=== PATIENT | female | born 1975 | race Caucasian/White ===

== ENCOUNTER 2016-05-01 15:31 | Emergency (ER) | payer BC ==
[2016-05-01] MEDS ORDERED: ORPHENADRINE 30 MG/ML 2 ML VIAL IVP STA (16:57)
[2016-05-01] MEDS ORDERED: HYDROmorphone 1 MG/ML 1 ML SYRINGE IVP STA ×2 (16:57→18:55)
--- NOTE | 2016-05-01 17:10 | ED ---
SOB HPI - General Chief Complaint: Shortness of Breath Stated Complaint: flank pain Time Seen by Provider: 05/01/16 16:45 Source: patient, RN notes reviewed Mode of arrival: ambulatory Limitations: no limitations - History of Present Illness Initial Comments: 40-year-old female presents emergency Department chief complaint right-sided rib pain. Patient states any time she takes a breath or touches the right side of her ribs a certain way causes pain. Patient states she holds them it feels better. Patient does state that she had pneumonia a little while ago and that about a week ago other than that there is no false there is no Baer there is no significant lifting. Patient states she was concerned because the pain just does not indicate that does not seem to be improving since it's constant sharp pain. Patient states that she went to urgent. They state that everything looked fine and she was sent home but she feels as if there must be something more. Patient states that she is not currently having any other symptoms at this time. Patient states taking a deep breath causes increased pain.Patient denies any recent fever, chills, back pain, abdominal pain, nausea vomiting, numbness or tingling, dysuria or hematuria, constipation or diarrhea, headaches or visual changes, or any other current symptoms. - Related Data Home Medications Medication Instructions Recorded Confirmed Dextroamphetamine/Amphetamine 60 mg PO QAM 05/01/16 05/01/16 [Adderall Xr] QUEtiapine FUMARATE [SEROquel] 200 mg PO HS 05/01/16 05/01/16 QUEtiapine [SEROquel] 100 mg PO BID 05/01/16 05/01/16 Sertraline HCl [Zoloft] 200 mg PO DAILY 05/01/16 05/01/16 lamoTRIgine [LaMICtal] 100 mg PO BID 05/01/16 05/01/16 Previous Rx's Medication Instructions Recorded Hydrocodone/Acetaminophen [[place] 1 each PO Q6HR PRN #20 tab 05/01/16 5-325] predniSONE 50 mg PO DAILY #5 tab 05/01/16 Allergies Allergy/AdvReac Type Severity Reaction Status Date / Time No Known Allergies Allergy Verified 05/01/16 17:04 Review of Systems ROS Statement: Those systems with pertinent positive or pertinent negative responses have been documented in the HPI. ROS Other: All systems not noted in ROS Statement are negative. Past Medical History Past Medical History: No Reported History History of Any Multi-Drug Resistant Organisms: None Reported Past Surgical History: Appendectomy, Cholecystectomy Past Psychological History: ADD/ADHD, Depression Smoking Status: Never smoker Past Alcohol Use History: None Reported Past Drug Use History: Marijuana General Exam - General Exam Comments Initial Comments: General: The patient is awake and alert, in no distress, and does not appear acutely ill. Eye: Pupils are equal, round. Ears, nose, mouth and throat: There are moist mucous membranes and no oral lesions. Neck: The neck is supple, there is no tenderness. Cardiovascular: There is a regular rate and rhythm. No murmur, rub or gallop is appreciated.constipation along the right lateral rib cage to the anterior rib cage on the right. Respiratory: Lungs are clear to auscultation, respirations are non-labored, breath sounds are equal. No wheezes, stridor, rales, or rhonchi. Gastrointestinal: Soft, non-distended, non-tender abdomen without masses or organomegaly noted. There is no rebound or guarding present. No CVA tenderness. Bowel sounds are unremarkable. Back: There is no tenderness to palpation in the midline. There is no obvious deformity. No rashes noted. Musculoskeletal: Normal ROM, no tenderness, There is no pedal edema. There is no calf tenderness or swelling. Sensation intact. Pulses equal bilaterally 2+. Neurological: CN II-XII intact, There are no obvious motor or sensory deficits. Coordination appears grossly intact. Speech is normal. Skin: Skin is warm and dry and no rashes or lesions are noted. Psychiatric: Cooperative, appropriate mood & affect, normal judgment. Limitations: no limitations Course Vital Signs 05/01/16 05/01/16 15:38 17:12 Temperature 98.2 F 98.5 F Pulse Rate 109 H 86 Respiratory 20 20 Rate Blood Pressure 139/89 142/82 O2 Sat by Pulse 100 98 Oximetry Medical Decision Making - Medical Decision Making 40-year-old female presents for appears to be a costochondritis type pain. At this time CAT scan blood work is reviewed and negative. At this time the patient appears to have a costochondritis. We discussed pain medication. We discussed splint and ice. We discussed appropriate follow-up. We discussed return parameters. Discussed all the patient's questions. She stated that she understood and she had is in agreement with the plan. This time the patient will be discharged home. - Lab Data Result diagrams: 05/01/16 17:30 05/01/16 17:30 Lab Results 05/01/16 05/01/16 05/01/16 Range/Units 17:30 17:30 17:30 WBC 7.7 (3.8-10.6) k/uL RBC 4.39 (3.80-5.40) m/uL Hgb 11.1 L (11.4-16.0) gm/dL Hct 34.8 (34.0-46.0) % MCV 79.3 L (80.0-100.0) fL MCH 25.4 (25.0-35.0) pg MCHC 32.0 (31.0-37.0) g/dL RDW 17.2 H (11.5-15.5) % Plt Count 432 (150-450) k/uL Neutrophils % 73 % Lymphocytes % 19 % Monocytes % 6 % Eosinophils % 1 % Basophils % 0 % Neutrophils # 5.6 (1.3-7.7) k/uL Lymphocytes # 1.5 (1.0-4.8) k/uL Monocytes # 0.4 (0-1.0) k/uL Eosinophils # 0.1 (0-0.7) k/uL Basophils # 0.0 (0-0.2) k/uL Hypochromasia Slight Anisocytosis Slight Microcytosis Slight D-Dimer 0.66 H (<0.60) mg/L FEU Sodium 142 (137-145) mmol/L Potassium 3.8 (3.5-5.1) mmol/L Chloride 107 (98-107) mmol/L Carbon Dioxide 24 (22-30) mmol/L Anion Gap 11 mmol/L BUN 10 (7-17) mg/dL Creatinine 0.87 (0.52-1.04) mg/dL Est GFR (MDRD) Af Amer >60 (>60 ml/min/1.73 sqM) Est GFR (MDRD) Non-Af >60 (>60 ml/min/1.73 sqM) Glucose 90 (74-99) mg/dL Calcium 9.7 (8.4-10.2) mg/dL Total Bilirubin 0.4 (0.2-1.3) mg/dL AST 20 (14-36) U/L ALT 27 (9-52) U/L Alkaline Phosphatase 63 (38-126) U/L Total Protein 7.4 (6.3-8.2) g/dL Albumin 4.3 (3.5-5.0) g/dL - Radiology Data Radiology results: report reviewed, image reviewed Disposition Clinical Impression: Costochondritis, Thyroid cyst Disposition: HOME SELF-CARE Condition: Stable Instructions: Costochondritis (ED) Additional Instructions: Please use medication as discussed. Please follow up with family doctor if symptoms have not improved over the next two days. Please return to the emergency room if your symptoms increase or worsen or for any other concerns. Prescriptions: Hydrocodone/Acetaminophen [[place] 5-325] 1 each PO Q6HR PRN #20 tab PRN Reason: Pain predniSONE 50 mg PO DAILY #5 tab Referrals: Gucci Gooden MD [STAFF PHYSICIAN] - 1-2 days Time of Disposition: 18:58
[2016-05-01 17:45] LABS: ALT 27 U/L (9-52); AST 20 U/L (14-36); Alkaline Phosphatase 63 U/L (38-126); Anion Gap 11 mmol/L; Blood Urea Nitrogen 10 mg/dL (7-17); Calcium 9.7 mg/dL (8.4-10.2); Carbon Dioxide 24 mmol/L (22-30); Chloride 107 mmol/L (98-107); Glucose 90 mg/dL (74-99); Non-African American GFR(MDRD) >60 (>60 ml/min/1.73 sqM); Potassium 3.8 mmol/L (3.5-5.1); Sodium 142 mmol/L (137-145); Total Bilirubin 0.4 mg/dL (0.2-1.3); Total Protein 7.4 g/dL (6.3-8.2)
[2016-05-01 17:48] LABS: Anisocytosis Slight; Basophils % (A) 0 %; CH 25.3; Eosinophils # (A) 0.1 k/uL (0-0.7); Eosinophils % (A) 1 %; HCT 34.8 % (34.0-46.0); HDW 2.87; HGB 11.1 gm/dL (11.4-16.0); Hypochromasia Slight; Luc # (Auto) 0.11; Luc % (Auto) 2; Lymphocytes # (A) 1.5 k/uL (1.0-4.8); Lymphocytes % (A) 19 %; MCH 25.4 pg (25.0-35.0); MCV 79.3 fL (80.0-100.0); Mean Platelet Volume 6.1; Microcytosis Slight; Monocytes # (A) 0.4 k/uL (0-1.0); Monocytes % (A) 6 %; Neutrophils # (A) 5.6 k/uL (1.3-7.7); Neutrophils % (A) 73 %; RBC 4.39 m/uL (3.80-5.40); RDW 17.2 % (11.5-15.5); WBC 7.7 k/uL (3.8-10.6); WBC (Perox) 8.35
[2016-05-01] MEDS ORDERED: RX INFO: IV CONTRAST WAS GIVEN 1 EACH MISC MISCELLANE PRN (18:01)
--- NOTE | 2016-05-01 18:50 | CT ---
EXAMINATION TYPE: CT angio chest DATE OF EXAM: 05/01/2016 6:38 PM COMPARISON: NONE HISTORY: Right sided Chest pain with Shortness of breath CT DLP: 226.5 mGycm Automated exposure control for dose reduction was used. CONTRAST: CTA scan of the thorax is performed with IV Contrast, patient injected with 100 mL of Omnipaque 350, pulmonary embolism protocol. . FINDINGS: There are 3-D post processed images. The lungs are clear of consolidation. There is no evidence of a pulmonary mass. There is no pleural e ffusion. There is no mediastinal adenopathy. There are no hilar masses. There is normal contrast opac ification of the pulmonary arteries. I see no filling defect. There are calcified granulomata at the left pulmonary hilum. There is no pericardial effusion. There is no pleural effusion. There is enlarg ement of the right thyroid lobe with a 2.5 cm low-density mass. There is no evidence of aortic aneury sm or dissection. The bony thorax appears intact. IMPRESSION: NO EVIDENCE OF PULMONARY EMBOLISM. LOW-DENSITY LESION IN THE RIGHT THYROID LOBE COULD BE A CYST.. I H AVE NO OLD EXAM TO COMPARE.
[2016-05-01 19:21] VITALS: BP 132/74; PULSE 72; RESP 16; TEMP 97.8
== END 2016-05-01 19:47 | disposition home or self-care (01) ==
LOC: EC 15:31
DX: M94.0 Chondrocostal junction syndrome [Tietze] (principal); E04.1 Nontoxic single thyroid nodule; F90.9 Attention-deficit hyperactivity disorder, unspecified type; F32.9 Major depressive disorder, single episode, unspecified; Z79.899 Other long term (current) drug therapy; Z87.01 Personal history of pneumonia (recurrent)
CPT/HCPCS: 36415; 85379; 80053; 85025; 71275; 99285; 96374; 96375; 96376; J2360; Q9967; J1170

== ENCOUNTER → 2017-02-05 | Outpatient (CLI) | payer BC ==
--- NOTE | 2017-02-05 09:56 | US ---
EXAMINATION TYPE: US thyroid st tissue head/neck DATE OF EXAM: 02/05/2017 COMPARISON: NONE CLINICAL HISTORY: 41-year-old female E04.1 NONTOXIC SINGLE THYROID NODULE. TECHNIQUE: Multiple sonographic images of the thyroid gland are obtained. FINDINGS: GLAND SIZE: Right Lobe: 5.9 x 2.3 x 1.8 cm Overall Parenchyma: homogenous Left Lobe: 5.8 x 1.9 x 1.8 cm Overall Parenchyma: homogeneous Isthmus Thickness: 0.4 cm NODULES RIGHT: # of nodules measured on right: 2 1. 2.5 X 2.1 x 2.1 cm mixed nodule at the lower pole with well-defined margins; . This nodule is t aller than wide and shows intranodular vascularity. Some microcalcifications are present within. Prior size: No previous 2. 0.8 X 0.4 x 0.7 cm mixed nodule at the pole with well-defined margins; . This nodule is wider th an tall and shows intranodular vascularity. Prior size: No previous LEFT: # of nodules measured on left: 2 1. 1.4 x 1.3 X 1.3 cm isoechoic solid nodule at the mid pole with well-defined margins; . This nodu le is wider than tall and shows intranodular vascularity. Prior size: No previous 2. 1.1 X 1.2 x 1.1 cm mixed solid cystic nodule at the mid pole with well-defined margins; . This n odule is wider than tall and shows intranodular vascularity. Prior size: No previous ISTHMUS: # of nodules measured in the isthmus: 0 Bilateral neck scanned, no evidence of lymphadenopathy. IMPRESSION: 1. Heterogeneous 2.5 cm nodule in the right lower pole. This can be sampled to exclude malignancy. 2. A couple additional nodules on the left measuring 1.4 and 1.2 cm. These can be followed and biopsi ed if they increase in size to 1.5 cm. 3. Thyromegaly.
== END | disposition home or self-care (01) ==
LOC: RADUSWWP 08:25
PROVIDERS: ATTEND Family Medicine
DX: E04.2 Nontoxic multinodular goiter (principal)
CPT/HCPCS: 76536

== ENCOUNTER → 2017-04-18 | Outpatient (CLI) | payer BC ==
[2017-04-18 16:09] LABS: Basophils % (A) 0 %; Eosinophils # (A) 0.2 k/uL (0-0.7); Eosinophils % (A) 2 %; HCT 37.8 % (34.0-46.0); HGB 12.2 gm/dL (11.4-16.0); Lymphocytes # (A) 1.5 k/uL (1.0-4.8); Lymphocytes % (A) 16 %; MCH 30.1 pg (25.0-35.0); MCHC 32.3 g/dL (31.0-37.0); MCV 93.1 fL (80.0-100.0); Mean Platelet Volume 7.2; Monocytes # (A) 0.4 k/uL (0-1.0); Monocytes % (A) 4 %; Neutrophils # (A) 7.3 k/uL (1.3-7.7); Neutrophils % (A) 76 %; Platelet Count 320 k/uL (150-450); RBC 4.06 m/uL (3.80-5.40); RDW 15.2 % (11.5-15.5); WBC 9.6 k/uL (3.8-10.6)
== END | disposition home or self-care (01) ==
LOC: LABWHC1 15:27
PROVIDERS: ATTEND Obstetrics & Gynecology
DX: Z01.812 Encounter for preprocedural laboratory examination (principal)
CPT/HCPCS: 36415; 85025

== ENCOUNTER 2017-05-02 12:17 | Day surgery (SDC) | payer BC ==
[2017-05-02 12:37] VITALS: TEMP 98.1
[2017-05-02] MEDS ORDERED: ALPRAZolam 0.5 MG TAB PO STA (12:43)
[2017-05-02 13:52] VITALS: BP 111/68; PULSE 52; RESP 14
--- NOTE | 2017-05-02 14:05 | US ---
ULTRASOUND GUIDED FNA THYROID BIOPSY: CLINICAL HISTORY: Request for a right and left thyroid nodule FNA FINDINGS: The procedure was explained to the patient. The risks, complications, benefits and alternatives were discussed and any questions were answered. Informed consent was obtained. Patient was placed supin e on the ultrasound table and prepped and draped in the usual sterile fashion. Utilizing a 25 gauge needle, five passes were made into the requested right and left thyroid nodules. Patient was stable throughout the procedure. Pathology is pending. All elements of maximal barrier technique were utilized. IMPRESSION: 1. Successful ultrasound guided FNA thyroid biopsy of 2 thyroid nodules.
== END 2017-05-02 13:58 | disposition home or self-care (01) ==
LOC: RADPROMAIN 12:17
PROVIDERS: ATTEND Surgery
DX: E04.2 Nontoxic multinodular goiter (principal)
CPT/HCPCS: 10022; 76942; 88173; 88305

== ENCOUNTER 2017-05-08 06:48 | Day surgery (SDC) | payer BC ==
[2017-04-30 15:17] VITALS: BMI 31.0
[~2017-05-08 06:48] MED LIST: DEXAMETHASONE SOD PHOSPHATE 10 MG/ML 1 ML VIAL IV ONE; MIDAZOLAM 2 MG/2 ML VIAL IV PRN; MORPHINE SULFATE 4 MG/ML SYRINGE IV PRN; ONDANSETRON 4 MG/2 ML VIAL IVP ONE; Pre Op ABX Message 1 EACH MISC MISCELLANE ONE; SCOPOLAMINE 1.5MG/72HR PATCH TRANSDERM ONE
[2017-05-08 07:32] VITALS: RESP 16
[2017-05-08] MEDS: LACTATED RINGERS 1,000 ML IV SCH ×2 (07:32→09:36)
[2017-05-08] MEDS ORDERED: LIDOCAINE 1% 20 ML VIAL (10MG/ML) FOR IV START INTRADERMA ONE (07:32)
[2017-05-08] MEDS ORDERED: fentaNYL (PF) 50 MCG/ML 2 ML AMP ONE (07:42)
[2017-05-08] MEDS ORDERED: KETOROLAC 30 MG/ML 1 ML VIAL ONE (07:42)
[2017-05-08] MEDS ORDERED: LIDOCAINE 1% INJ 10MG/ML (20 ML MDV) ONE (07:42)
[2017-05-08] MEDS ORDERED: MIDAZOLAM 2 MG/2 ML VIAL ONE (07:42)
[2017-05-08] MEDS ORDERED: PROPOFOL 10 MG/ML 20 ML VIAL IV ONE (07:42)
--- NOTE | 2017-05-08 08:11 | P.HPOB ---
History of Present Illness H&P Date: 05/08/17 Chief Complaint: Menorrhagia Serena has very heavy bleeding every cycle. It is becoming very problematic as she is interrupting her life. She is unable to work well and she cannot work out due to how heavy her bleeding is and she is requesting D&C with hysteroscopy and NovaSure for resolution of the bleeding. Risks/benefits/ alternatives to this procedure were discussed with the patient in detail and all questions were answered for the patient prior to proceeding to the operating room. On physical exam vital signs are stable and afebrile. Heart regular, lungs clear, extremities without pain. Osteopathic exams unremarkable. Pelvic exam is otherwise unremarkable. Assessment menorrhagia. Plan D&C with hysteroscopy and NovaSure. Past Medical History Past Medical History: No Reported History Additional Past Medical History / Comment(s): Menorrhagia History of Any Multi-Drug Resistant Organisms: None Reported Past Surgical History: Appendectomy, Cholecystectomy Past Anesthesia/Blood Transfusion Reactions: No Reported Reaction Smoking Status: Never smoker - Past Family History Mother History Unknown: Yes Additional Family Medical History / Comment(s): patient adopted, knows of heart disease, breast cancer and diabetes Medications and Allergies Home Medications Medication Instructions Recorded Confirmed Type Acamprosate Calcium [Campral] 666 mg PO TID 04/19/17 05/08/17 History Gabapentin [Neurontin] 400 mg PO QID 04/19/17 05/08/17 History [place] Carbonate 600 mg PO DAILY 04/19/17 05/08/17 History Prazosin [Minipress] 1 mg PO HS 04/19/17 05/08/17 History busPIRone HCL 30 mg PO BID 04/19/17 05/08/17 History traZODone HCL 100 mg PO HS 04/19/17 05/08/17 History Ibuprofen [Motrin] 600 mg PO Q6HR PRN #30 tab 05/08/17 Rx Allergies Allergy/AdvReac Type Severity Reaction Status Date / Time No Known Allergies Allergy Verified 05/02/17 13:18 Exam Osteopathic Statement: *. No significant issues noted on an osteopathic structural exam other than those noted in the History and Physical/Consult. - Vital Signs Vital signs: Vital Signs Temp Pulse Resp BP Pulse Ox 05/08/17 07:31 98.1 F 55 L 16 127/79 98 Intake and Output 05/07/17 05/08/17 05/08/17 22:59 06:59 14:59 Intake Total 600 Output Total 5 Balance 595 Intake: IV 600 Output: Estimated Blood Loss 5
--- NOTE | 2017-05-08 08:13 | P.OP ---
Date of Procedure: 05/08/17 Preoperative Diagnosis: Menorrhagia Postoperative Diagnosis: Same Procedure(s) Performed: Proliferative endometrium Anesthesia: XIN Surgeon: Andres Jacome Estimated Blood Loss (ml): 5 Pathology: other (Uterine curettings) Condition: stable Disposition: same day Operative Findings: Tissue pathology pending Description of Procedure: Patient was taken to the operating suite where a general anesthetic was found be adequate. She was prepped and draped in normal sterile fashion and placed in dorsal lithotomy position. Initially a weighted speculum was inserted into the vagina and the anterior lip of the cervix was grasped with an Allis clamp. Cervix was then dilated and camera was inserted. Her lipid endometrium was noted therefore camera was removed and sharp curettings of the endometrium were obtained. This tissue was collected placed on Telfa and sent to pathology for evaluation. Once this was accomplished NovaSure system was inserted with length of 4.5 and a width of 4.4 it was tested once it passes patency test it was enabled and burn for 102 seconds. At the conclusion of the burn NovaSure system was removed and camera was reinserted with excellent burn noted. Sponge , lap, needle counts were all correct 2. Patient was then taken to the recovery room in stable and satisfactory condition. Plan - Discharge Summary New Discharge Prescriptions: New Ibuprofen [Motrin] 600 mg PO Q6HR PRN #30 tab PRN Reason: Pain No Action [place] Carbonate 600 mg PO DAILY Gabapentin [Neurontin] 400 mg PO QID busPIRone HCL 30 mg PO BID Prazosin [Minipress] 1 mg PO HS Acamprosate Calcium [Campral] 666 mg PO TID traZODone HCL 100 mg PO HS Discharge Medication List Acamprosate Calcium [Campral] 666 mg PO TID 04/19/17 [History] Gabapentin [Neurontin] 400 mg PO QID 04/19/17 [History] [place] Carbonate 600 mg PO DAILY 04/19/17 [History] Prazosin [Minipress] 1 mg PO HS 04/19/17 [History] busPIRone HCL 30 mg PO BID 04/19/17 [History] traZODone HCL 100 mg PO HS 04/19/17 [History] Ibuprofen [Motrin] 600 mg PO Q6HR PRN #30 tab 05/08/17 [Rx] Follow up Appointment(s)/Referral(s): Andres Jacome DO [Doctor of Osteopathic Medicine] - 1 Week Activity/Diet/Wound Care/Special Instructions: No heavy lifting, limit stairs and driving today, pelvic rest. If any high temperatures, heavy bleeding, or severe pain call my office Discharge Disposition: HOME SELF-CARE
[2017-05-08 08:23] VITALS: TEMP 97.5
[2017-05-08] MEDS ORDERED: HYDROmorphone 0.5 MG/0.5 ML SYRINGE IVP ONE (08:49)
[2017-05-08 09:35] VITALS: BP 121/80; PULSE 57
== END 2017-05-08 10:02 | disposition home or self-care (01) ==
LOC: OR 06:48
PROVIDERS: ATTEND Obstetrics & Gynecology
DX: N92.0 Excessive and frequent menstruation with regular cycle (principal); F41.9 Anxiety disorder, unspecified; F32.9 Major depressive disorder, single episode, unspecified; F90.9 Attention-deficit hyperactivity disorder, unspecified type; F43.10 Post-traumatic stress disorder, unspecified; Z79.1 Long term (current) use of non-steroidal anti-inflammatories (NSAID); Z79.899 Other long term (current) drug therapy; Z80.3 Family history of malignant neoplasm of breast; Z83.3 Family history of diabetes mellitus; Z82.49 Family history of ischemic heart disease and other diseases of the circulatory system
CPT/HCPCS: 81025; 88305; 58563; J2250; J2270; J1100; J2405; J2001; J3010; J1885; J2704; J1170

== ENCOUNTER 2017-07-18 06:03 | Day surgery (SDC) | payer BC ==
[2017-07-13 11:25] VITALS: BMI 29.4
[~2017-07-18 06:03] MED LIST changes: -DEXAMETHASONE SOD PHOSPHATE 10 MG/ML 1 ML VIAL IV ONE; +HEPARIN SODIUM,PORCINE 5,000 UNIT/ML 1 ML VIAL SQ ONE; -MIDAZOLAM 2 MG/2 ML VIAL IV PRN; -MORPHINE SULFATE 4 MG/ML SYRINGE IV PRN; -ONDANSETRON 4 MG/2 ML VIAL IVP ONE; -Pre Op ABX Message 1 EACH MISC MISCELLANE ONE; -SCOPOLAMINE 1.5MG/72HR PATCH TRANSDERM ONE; +ceFAZolin IN SWFI 2 GM/20 ML SYRINGE IVP ONE
[2017-07-18] MEDS ORDERED: LACTATED RINGERS 1,000 ML IV SCH (06:07)
[2017-07-18] MEDS ORDERED: MORPHINE SULFATE 4 MG/0.8 ML SYRINGE (INJ) IV PRN (06:07)
[2017-07-18] MEDS ORDERED: DEXAMETHASONE SOD PHOSPHATE 10 MG/ML 1 ML VIAL IV ONE (06:07)
[2017-07-18] MEDS ORDERED: ONDANSETRON ODT 4 MG TAB PO ONE (06:07)
[2017-07-18] MEDS ORDERED: LIDOCAINE 1% 20 ML VIAL (10MG/ML) FOR IV START INTRADERMA ONE (06:55)
[2017-07-18] MEDS: MIDAZOLAM 2 MG/2 ML VIAL IV ONE ×2 (06:55→07:27)
--- NOTE | 2017-07-18 07:52 | P.GSHP ---
History of Present Illness H&P Date: 07/18/17 Chief Complaint: Incisional hernia Patient is known to our office. Recently seen earlier this year with complaints of a bulge in the upper midabdomen. It is at the site of a previous cholecystectomy scar. This is increasing in size. More pain in that location lately. This remains reducible. Some discomfort with eating. No nausea or vomiting. Past Medical History Past Medical History: No Reported History History of Any Multi-Drug Resistant Organisms: None Reported Past Surgical History: Appendectomy, Cholecystectomy Past Anesthesia/Blood Transfusion Reactions: No Reported Reaction Smoking Status: Former smoker - Past Family History Mother History Unknown: Yes Additional Family Medical History / Comment(s): patient adopted, knows of heart disease, breast cancer and diabetes Medications and Allergies Home Medications Medication Instructions Recorded Confirmed Type Acamprosate Calcium [Campral] 666 mg PO TID 04/19/17 07/13/17 History busPIRone HCL 30 mg PO BID 04/19/17 07/13/17 History traZODone HCL 100 mg PO HS 04/19/17 07/13/17 History Ibuprofen [Motrin] 600 mg PO Q6HR PRN #30 tab 05/08/17 07/13/17 Rx Gabapentin [Neurontin] 100 mg PO QID 07/13/17 07/13/17 History Allergies Allergy/AdvReac Type Severity Reaction Status Date / Time acetaminophen AdvReac Abdominal Verified 07/18/17 07:14 [From Tylenol-Codeine #3] Pain codeine AdvReac Abdominal Verified 07/18/17 07:14 [From Tylenol-Codeine #3] Pain Surgical - Exam Vital Signs Temp Pulse Resp BP Pulse Ox 98.8 F 68 16 113/74 97 07/18/17 06:38 07/18/17 06:38 07/18/17 06:38 07/18/17 06:38 07/18/17 06:38 Physical exam: General: Well-developed, well-nourished HEENT: Normocephalic, sclerae nonicteric Abdomen: Nontender, nondistended, reducible incisional hernia present at the vertical incision in the epigastric region, fascial defect approximately 2 cm Extremities: No edema Neuro: Alert and oriented Assessment and Plan (1) Incisional hernia Narrative/Plan: Will proceed with incisional hernia repair with mesh at this time. Risks of bleeding, infection, recurrence, bladder and bowel injury, numbness, nerve injury were discussed with the patient. The patient understands and wishes to proceed. Current Visit: Yes Status: Acute Code(s): K43.2 - INCISIONAL HERNIA WITHOUT OBSTRUCTION OR GANGRENE SNOMED Code(s): 582443787
[2017-07-18] MEDS ORDERED: PROPOFOL 10 MG/ML 20 ML VIAL IV ONE (08:08)
[2017-07-18] MEDS ORDERED: NEOSTIGMINE 1 MG/ML 10 ML VIAL ONE (08:08)
[2017-07-18] MEDS ORDERED: LIDOCAINE 1% INJ 10MG/ML (20 ML MDV) ONE (08:08)
[2017-07-18] MEDS ORDERED: fentaNYL (PF) 50 MCG/ML 2 ML AMP ONE (08:08)
[2017-07-18] MEDS ORDERED: ROCURONIUM BROMIDE 10 MG/ML 10 ML VIAL IV ONE (08:08)
[2017-07-18] MEDS ORDERED: ROPIVACAINE 5 MG/ML 30 ML VIAL ONE (08:08)
[2017-07-18] MEDS ORDERED: GLYCOPYRROLATE 0.2 MG/ML 2 ML VIAL ONE (08:08)
[2017-07-18] MEDS ORDERED: KETOROLAC 30 MG/ML 1 ML VIAL ONE (08:08)
[2017-07-18] MEDS ORDERED: SUCCINYLCHOLINE CHLORIDE 100 MG/5 ML SYR IV ONE (08:08)
[2017-07-18] MEDS ORDERED: BUPIVACAINE (PF) 0.25% 30 ML VIAL SQ ONE ×2 (08:29)
[2017-07-18 09:21] VITALS: TEMP 98.2
[2017-07-18] MEDS ORDERED: HYDROcodone/APAP 5-325MG 1 EACH TAB PO PRN (09:27)
[2017-07-18] MEDS ORDERED: NALOXONE 0.4 MG/ML 1 ML VIAL IV PRN (09:27)
--- NOTE | 2017-07-18 09:38 | P.OP ---
Date of Procedure: 07/18/17 Procedure(s) Performed: PREOPERATIVE DIAGNOSIS: Incisional hernia POSTOPERATIVE DIAGNOSIS: Same PROCEDURE: Repair with mesh SURGEON: Kiet EBL: Minimal ANESTHESIA: General COMPLICATIONS: None OPERATIVE PROCEDURE: Patient place never table in the supine position. The patient was placed under general anesthesia at that time. The abdomen was prepped and draped in usual sterile fashion. A vertical incision was made through the previous scar site at the epigastrium and extended inferiorly. This incision measured approximately 6 cm in length. Subcutaneous tissues were divided using electrocautery. The hernias was identified. There was a large volume of prepared no fat that was carefully dissected away from the surrounding subcutaneous tissues. This was then reduced back into the prepared. Further blunt dissection took place of the pre-peritoneal space. The size of the fascial defect was 1.5-2 cm in size. The 6.4 cm ventral ex mesh was placed in the pre-peroneal space and flattened out appropriately. This is sutured in place using trans-fascial 2-0 Nurolon sutures. The fascial defect was then closed horizontally using [id number] 0 Ethibond sutures. The subcutaneous tissues were closed using 3-0 Vicryl sutures and the skin using a running 4-0 Monocryl stitch. Steri-Strips and sterile scissor applied. DISPOSITION: Stable to recovery room
[2017-07-18] MEDS ORDERED: MORPHINE SULFATE 4 MG/0.8 ML SYRINGE (INJ) IVP ONE (09:39)
[2017-07-18 09:46] VITALS: RESP 16
[2017-07-18] MEDS ORDERED: HYDROcodone/APAP 5-325MG 1 EACH TAB PO ONE (10:17)
[2017-07-18] MEDS ORDERED: LACTATED RINGERS 1,000 ML IV ONE (10:24)
[2017-07-18 11:16] VITALS: BP 108/73; PULSE 62
--- NOTE | 2017-07-20 07:11 | P.ONQ ---
Anesthesiology Proc Note - PNB - Peripheral Nerve Block Performed Bilateral Rectus Abdominis Single Time Out Performed: Yes Procedure Start Time: :28 Procedure Stop Time: :36 Indication: Acute Post-Operative Pain, Requested by physician Sedation Type: Sedate with meaningful contact maintained Preparation: Sterile Prep Position: Supine Needle Size: 50mm (2") Needle Gauge: 21 Technique: Ultrasound Injectate: 0.5% Ropivacaine (see comment for volume) (ropi .5% 15cc each side) Blood Aspirated: No Pain Paresthesia on Injection Noted: No Resistance on Injection: Normal Events: Uneventful and Well Tolerated
== END 2017-07-18 11:51 | disposition home or self-care (01) ==
LOC: OR 06:03
PROVIDERS: ATTEND Surgery
DX: K43.2 Incisional hernia without obstruction or gangrene (principal); F41.9 Anxiety disorder, unspecified; Z90.49 Acquired absence of other specified parts of digestive tract; Z88.5 Allergy status to narcotic agent; Z87.891 Personal history of nicotine dependence; Z83.3 Family history of diabetes mellitus; Z79.899 Other long term (current) drug therapy
CPT/HCPCS: 81025; 49560; 49568; 64488; C1781; J2250; J1644; J1100; J2710; J2001; J3010; J1885; J2795; J0330; J2704; J0690; J2270

== ENCOUNTER 2017-11-07 08:04 | Day surgery (SDC) | payer BC ==
[2017-11-07 08:27] VITALS: RESP 16; TEMP 97.7
[2017-11-07] MEDS ORDERED: ALPRAZolam 0.5 MG TAB PO STA (08:28)
[2017-11-07 10:12] VITALS: BP 110/65; PULSE 66
--- NOTE | 2017-11-07 10:18 | US ---
ULTRASOUND GUIDED FNA THYROID BIOPSY: CLINICAL HISTORY: 1.7 and 1.1 cm left thyroid nodules requested for biopsy FINDINGS: The procedure was explained to the patient. The risks, complications, benefits and alternatives were discussed and any questions were answered. Informed consent was obtained. Patient was placed supin e on the ultrasound table and prepped and draped in the usual sterile fashion. Utilizing a 25 gauge needle, five passes were made into the 1.7 and subsequently 1.1 cm left thyroid nodule. Patient was stable throughout the procedure. Pathology is pending. All elements of maximal barrier technique were utilized. IMPRESSION: 1. Successful ultrasound guided FNA thyroid biopsy.
== END 2017-11-07 10:10 | disposition home or self-care (01) ==
LOC: RADPROMAIN 08:04
PROVIDERS: ATTEND Surgery
DX: E04.1 Nontoxic single thyroid nodule (principal)
CPT/HCPCS: 10022; 76942; 88173; 88305

== ENCOUNTER 2018-08-27 18:25 | Emergency (ER) | payer BC ==
[2018-08-27 19:09] VITALS: TEMP 98.1
[2018-08-27] MEDS ORDERED: KETOROLAC 30 MG/ML 1 ML VIAL IVP STA (19:52)
[2018-08-27] MEDS ORDERED: HYDROmorphone 0.5 MG/0.5 ML SYRINGE IVP STA (19:52)
[2018-08-27] MEDS ORDERED: SODIUM CHLORIDE 0.9% 500 ML 500 ML IV STA (19:52)
[2018-08-27 20:15] LABS: Basophils % (A) 0 %; Eosinophils # (A) 0.2 k/uL (0-0.7); Eosinophils % (A) 2 %; HCT 41.8 % (34.0-46.0); HGB 13.7 gm/dL (11.4-16.0); Lymphocytes # (A) 1.4 k/uL (1.0-4.8); Lymphocytes % (A) 16 %; MCH 28.2 pg (25.0-35.0); MCHC 32.8 g/dL (31.0-37.0); MCV 85.9 fL (80.0-100.0); Mean Platelet Volume 6.8; Monocytes # (A) 0.4 k/uL (0-1.0); Monocytes % (A) 4 %; Neutrophils # (A) 6.5 k/uL (1.3-7.7); Neutrophils % (A) 76 %; Platelet Count 305 k/uL (150-450); RBC 4.86 m/uL (3.80-5.40); RDW 14.2 % (11.5-15.5); WBC 8.6 k/uL (3.8-10.6)
[2018-08-27 20:24] LABS: Appearance,Urine Clear (Clear); Bilirubin,Urine Negative (Negative); Blood,Urine Negative (Negative); Color,Urine Yellow; Glucose,Urine (UA) Negative (Negative); Ketones,Urine 1+ (Negative); Leukocyte Esterase,Urine Negative (Negative); Nitrite,Urine Negative (Negative); PH, Urine 5.5 (5.0-8.0); Protein,Urine Negative (Negative); Specific Gravity,Urine 1.026 (1.001-1.035); Urobilinogen,Urine <2.0 mg/dL (<2.0)
[2018-08-27 20:29] LABS: ALT 15 U/L (9-52); AST 19 U/L (14-36); Albumin 3.8 g/dL (3.5-5.0); Alkaline Phosphatase 49 U/L (38-126); Amylase 64 U/L (30-110); Anion Gap 7 mmol/L; Blood Urea Nitrogen 18 mg/dL (7-17); Calcium 8.8 mg/dL (8.4-10.2); Carbon Dioxide 23 mmol/L (22-30); Chloride 111 mmol/L (98-107); Glucose 91 mg/dL (74-99); Lipase 133 U/L (23-300); Sodium 141 mmol/L (137-145); Total Bilirubin 0.3 mg/dL (0.2-1.3); Total Protein 6.3 g/dL (6.3-8.2)
--- NOTE | 2018-08-27 21:12 | ED ---
Abdominal Pain HPI - General Chief Complaint: Abdominal Pain Stated Complaint: abdominal pain Time Seen by Provider: 08/27/18 19:29 Source: patient Mode of arrival: ambulatory Limitations: no limitations - History of Present Illness Initial Comments: 42-year-old female patient presents to the emergency department today for evaluation of suprapubic abdominal cramping. Patient states that she is currently on her period and is having very painful menstrual cramps. Patient states that she had a uterine ablation performed in the past and her period stop ped for a long time. Patient states that in the last 6 months her periods have returned and with them she has terrible cramping. Patient states that this. Has been the worst. Patient states that she doubles over in pain. States that her bleeding has been director fundraising than her periods used to be. States that she does occasionally pass clots. She denies any dizziness or weakness with this. Denies any nausea or vomiting. States that she does have pain in her back. She denies any chance of . Patient denies any recent rash, fever, chills, shortness breath, chest pain, diarrhea, constipation, back pain, numbness, tingling, dizziness, weakness, hematuria, dysuria, urinary urgency, urinary frequency, headache, visual changes, or any other complaints. - Related Data Home Medications Medication Instructions Recorded Confirmed lamoTRIgine [LaMICtal] 100 mg PO HS 10/26/17 08/27/18 Ferrous Sulfate [Feosol] 650 mg PO DAILY 08/27/18 08/27/18 busPIRone HCL 15 mg PO QID PRN 08/27/18 08/27/18 Allergies Allergy/AdvReac Type Severity Reaction Status Date / Time acetaminophen AdvReac Abdominal Verified 08/27/18 20:07 [From Tylenol-Codeine #3] Pain codeine AdvReac Abdominal Verified 08/27/18 20:07 [From Tylenol-Codeine #3] Pain Review of Systems ROS Statement: Those systems with pertinent positive or pertinent negative responses have been documented in the HPI. ROS Other: All systems not noted in ROS Statement are negative. Past Medical History Past Medical History: No Reported History History of Any Multi-Drug Resistant Organisms: None Reported Past Surgical History: Appendectomy, Cholecystectomy, Uterine Ablation Past Anesthesia/Blood Transfusion Reactions: No Reported Reaction Past Psychological History: ADD/ADHD, Anxiety, Depression Smoking Status: Former smoker Past Alcohol Use History: None Reported Past Drug Use History: None Reported - Past Family History Mother History Unknown: Yes Additional Family Medical History / Comment(s): patient adopted, knows of heart disease, breast cancer and diabetes General Exam Limitations: no limitations General appearance: alert, in no apparent distress, other (This well-developed, well-nourished adult female patient in no acute distress. Vital signs upon presentation are temperature 98.1F, pulse 89, respirations 18, blood pressure 153/88, pulse ox 99% on room air.) Eye exam: Present: normal appearance, PERRL, EOMI. Absent: scleral icterus, conjunctival injection, periorbital swelling ENT exam: Present: normal exam, normal oropharynx, mucous membranes moist Respiratory exam: Present: normal lung sounds bilaterally. Absent: respiratory distress, wheezes, rales, rhonchi, stridor Cardiovascular Exam: Present: regular rate, normal rhythm, normal heart sounds. Absent: systolic murmur, diastolic murmur, rubs, gallop, clicks GI/Abdominal exam: Present: soft, normal bowel sounds. Absent: distended, tenderness, guarding, rebound, rigid Neurological exam: Present: alert, oriented X3, CN II-XII intact Psychiatric exam: Present: normal affect, normal mood Skin exam: Present: warm, dry, intact, normal color. Absent: rash Course Vital Signs 08/27/18 08/27/18 08/27/18 19:06 20:40 22:20 Temperature 98.1 F Pulse Rate 89 74 60 Respiratory 18 18 16 Rate Blood Pressure 153/88 135/89 129/82 O2 Sat by Pulse 99 97 96 Oximetry Medical Decision Making - Medical Decision Making 50-year-old female patient presents to the emergency department today for evaluation of pelvic pain. Patient is on her period currently and states that her period cramps have been worsening over the last 6 months. Physical examination reveals soft nontender abdomen. Labs reviewed and were unremarka ble. Ultrasound was obtained and did show uterine fibroid at the uterine fundus measuring 4 cm. Upon reevaluation patient reports improvement of symptoms. She'll be discharged at this time to follow-up with her technology project manager for further evaluation. Return parameters discussed in detail. She verbalizes understanding and agrees with this plan. - Lab Data Result diagrams: 08/27/18 20:00 08/27/18 20:00 Lab Results 08/27/18 08/27/18 08/27/18 Range/Units 20:00 20:00 20:00 WBC 8.6 (3.8-10.6) k/uL RBC 4.86 (3.80-5.40) m/uL Hgb 13.7 (11.4-16.0) gm/dL Hct 41.8 (34.0-46.0) % MCV 85.9 (80.0-100.0) fL MCH 28.2 (25.0-35.0) pg MCHC 32.8 (31.0-37.0) g/dL RDW 14.2 (11.5-15.5) % Plt Count 305 (150-450) k/uL Neutrophils % 76 % Lymphocytes % 16 % Monocytes % 4 % Eosinophils % 2 % Basophils % 0 % Neutrophils # 6.5 (1.3-7.7) k/uL Lymphocytes # 1.4 (1.0-4.8) k/uL Monocytes # 0.4 (0-1.0) k/uL Eosinophils # 0.2 (0-0.7) k/uL Basophils # 0.0 (0-0.2) k/uL Sodium 141 (137-145) mmol/L Potassium 4.0 (3.5-5.1) mmol/L Chloride 111 H (98-107) mmol/L Carbon Dioxide 23 (22-30) mmol/L Anion Gap 7 mmol/L BUN 18 H (7-17) mg/dL Creatinine 0.89 (0.52-1.04) mg/dL Est GFR (CKD-EPI)AfAm >90 (>60 ml/min/1.73 sqM) Est GFR (CKD-EPI)NonAf 81 (>60 ml/min/1.73 sqM) Glucose 91 (74-99) mg/dL Calcium 8.8 (8.4-10.2) mg/dL Total Bilirubin 0.3 (0.2-1.3) mg/dL AST 19 (14-36) U/L ALT 15 (9-52) U/L Alkaline Phosphatase 49 (38-126) U/L Total Protein 6.3 (6.3-8.2) g/dL Albumin 3.8 (3.5-5.0) g/dL Amylase 64 (30-110) U/L Lipase 133 (23-300) U/L Urine Color Urine Appearance (Clear) Urine pH (5.0-8.0) Ur Specific [place] (1.001-1.035) Urine Protein (Negative) Urine Glucose (UA) (Negative) Urine Ketones (Negative) Urine Blood (Negative) Urine Nitrite (Negative) Urine Bilirubin (Negative) Urine Urobilinogen (<2.0) mg/dL Ur Leukocyte Esterase (Negative) Urine HCG, Qual Not Detected (Not Detectd) 08/27/18 Range/Units 20:00 WBC (3.8-10.6) k/uL RBC (3.80-5.40) m/uL Hgb (11.4-16.0) gm/dL Hct (34.0-46.0) % MCV (80.0-100.0) fL MCH (25.0-35.0) pg MCHC (31.0-37.0) g/dL RDW (11.5-15.5) % Plt Count (150-450) k/uL Neutrophils % % Lymphocytes % % Monocytes % % Eosinophils % % Basophils % % Neutrophils # (1.3-7.7) k/uL Lymphocytes # (1.0-4.8) k/uL Monocytes # (0-1.0) k/uL Eosinophils # (0-0.7) k/uL Basophils # (0-0.2) k/uL Sodium (137-145) mmol/L Potassium (3.5-5.1) mmol/L Chloride (98-107) mmol/L Carbon Dioxide (22-30) mmol/L Anion Gap mmol/L BUN (7-17) mg/dL Creatinine (0.52-1.04) mg/dL Est GFR (CKD-EPI)AfAm (>60 ml/min/1.73 sqM) Est GFR (CKD-EPI)NonAf (>60 ml/min/1.73 sqM) Glucose (74-99) mg/dL Calcium (8.4-10.2) mg/dL Total Bilirubin (0.2-1.3) mg/dL AST (14-36) U/L ALT (9-52) U/L Alkaline Phosphatase (38-126) U/L Total Protein (6.3-8.2) g/dL Albumin (3.5-5.0) g/dL Amylase (30-110) U/L Lipase (23-300) U/L Urine Color Yellow Urine Appearance Clear (Clear) Urine pH 5.5 (5.0-8.0) Ur Specific [place] 1.026 (1.001-1.035) Urine Protein Negative (Negative) Urine Glucose (UA) Negative (Negative) Urine Ketones 1+ H (Negative) Urine Blood Negative (Negative) Urine Nitrite Negative (Negative) Urine Bilirubin Negative (Negative) Urine Urobilinogen <2.0 (<2.0) mg/dL Ur Leukocyte Esterase Negative (Negative) Urine HCG, Qual (Not Detectd) - Radiology Data Radiology results: report reviewed, image reviewed Transvaginal ultrasound of the pelvis was obtained. Report reviewed in its entirety. Impression by Dr. Carbajal shows no acute findings. Suspect fibroid uterine fundus measuring up to 3.8 cm. Disposition Clinical Impression: Uterine fibroid, Pelvic pain Disposition: HOME SELF-CARE Condition: Good Instructions (If sedation given, give patient instructions): Pelvic Pain in Women (ED) Additional Instructions: Follow-up with your technology project manager for recheck as soon as possible. Inform them you had findings of uterine fibroid on ultrasound. Take medications as directed. Follow-up with your primary care physician for recheck in 1-2 days. Return to the emergency department immediately for any new, worsening, or rodriguez rning symptoms. Is patient prescribed a controlled substance at d/c from ED?: No Referrals: Ryan Garcia III, MD [Primary Care Provider] - 1-2 days Andres Jacome DO [Doctor of Osteopathic Medicine] - 1-2 days Time of Disposition: 23:06
[2018-08-27 22:34] VITALS: RESP 16
--- NOTE | 2018-08-27 22:46 | US ---
EXAM: US Pelvis, Transvaginal CLINICAL HISTORY: ITS.REASON US Reason: Pain TECHNIQUE: Real-time transvaginal pelvic ultrasound (complete) with image documentation. Transvaginal imaging was used for better evaluation of the endometrium and adnexa. COMPARISON: No relevant prior studies available. FINDINGS: Uterus/cervix: Anteverted. Uterus measures 8.4 x 5.2 x 7.1 cm. Heterogenous fibroid at the uterine fundus measuring 3.8 x 3.2 x 2.9cm. Normal endometrial stripe thickness. Nabothian cysts in the region of the cervix. Right ovary: Obscured by overlying bowel gas Left ovary: 2.5 x 1.2 x 1.8 cm. Normal vascular flow. Free fluid: No free fluid. Bladder: Empty bladder which cannot be evaluated with this probe. IMPRESSION: No acute findings. Suspect fibroid in the uterine fundus measuring up to 3.8 cm.
[2018-08-27] MEDS ORDERED: traMADol 50 MG STARTER PACK 3 TAB BTL PO STA (23:06)
[2018-08-27 23:46] VITALS: BP 124/82; PULSE 57
== END 2018-08-27 23:45 | disposition home or self-care (01) ==
LOC: EC 18:25
DX: D25.9 Leiomyoma of uterus, unspecified (principal); F32.9 Major depressive disorder, single episode, unspecified; F41.9 Anxiety disorder, unspecified; Z87.891 Personal history of nicotine dependence; Z79.899 Other long term (current) drug therapy; Z88.5 Allergy status to narcotic agent; Z98.890 Other specified postprocedural states
CPT/HCPCS: 36415; 80053; 82150; 83690; 85025; 81003; 81025; 93976; 76830; 99284; 96374; 96375; J1885; J1170

== ENCOUNTER 2019-05-09 11:10 | Inpatient (IN) | payer BC ==
[2019-05-09] MEDS ORDERED: ONDANSETRON 4 MG/2 ML VIAL IVP STA ×2 (11:33→13:46)
[2019-05-09] MEDS ORDERED: SODIUM CHLORIDE 0.9% 1,000 ML IV STA (11:33)
[2019-05-09] MEDS ORDERED: SODIUM CHLORIDE 0.9% 500 ML 500 ML IV STA (11:33)
[2019-05-09 12:06] LABS: Basophils % (A) 0 %; Eosinophils % (A) 0 %; HCT 43.6 % (34.0-46.0); HGB 14.1 gm/dL (11.4-16.0); Lymphocytes # (A) 0.7 k/uL (1.0-4.8); Lymphocytes % (A) 6 %; MCH 28.3 pg (25.0-35.0); MCHC 32.3 g/dL (31.0-37.0); MCV 87.5 fL (80.0-100.0); Mean Platelet Volume 7.4; Monocytes # (A) 0.3 k/uL (0-1.0); Monocytes % (A) 2 %; Neutrophils % (A) 91 %; Platelet Count 362 k/uL (150-450); RBC 4.99 m/uL (3.80-5.40); RDW 12.7 % (11.5-15.5); WBC 12.1 k/uL (3.8-10.6)
[2019-05-09 12:09] LABS: ALT 17 U/L (4-34); AST 22 U/L (14-36); African American GFR (CKD) >90 (>60 ml/min/1.73 sqM); Albumin 4.4 g/dL (3.5-5.0); Alkaline Phosphatase 58 U/L (38-126); Amylase 48 U/L (30-110); Anion Gap 10 mmol/L; Blood Urea Nitrogen 12 mg/dL (7-17); Calcium 9.6 mg/dL (8.4-10.2); Carbon Dioxide 24 mmol/L (22-30); Chloride 105 mmol/L (98-107); Glucose 175 mg/dL (74-99); Non-African American GFR(CKD) >90 (>60 ml/min/1.73 sqM); Sodium 139 mmol/L (137-145); Total Bilirubin 0.4 mg/dL (0.2-1.3); Total Protein 7.2 g/dL (6.3-8.2)
--- NOTE | 2019-05-09 12:14 | ED ---
Nausea/Vomiting/Diarrhea HPI - General Chief complaint: Nausea/Vomiting/Diarrhea Stated complaint: Abdominal pain Time Seen by Provider: 05/09/19 11:31 Source: patient Mode of arrival: ambulatory Limitations: no limitations - History of Present Illness Initial comments: 43-year-old female presenting for nausea vomiting diarrhea. Patient states she has been vomiting since 7:30 AM. She states the vomiting. She is still nauseous. Patient states she did have a loose stool. Patient states she ate chicken last night. Patient is unsure if this is a cause she states she feels like she ate something bad. Patient states her stomach is tender from puking so much. Patient denies any severe abdominal pain she states her main complaint is the nausea. Patient denies any melena hematochezia or hematemesis. Patient denies any chest pain shortness of breath headache neck pain. Patient denies visual changes. Remaining review of systems negative upon arrival patient appears nontoxic but appears uncomfortable. - Related Data Home Medications Medication Instructions Recorded Confirmed lamoTRIgine [LaMICtal] 100 mg PO HS 10/26/17 05/09/19 busPIRone HCL 15 mg PO QID PRN 08/27/18 05/09/19 Ascorbic Acid [Vitamin C] 500 mg PO HS 05/09/19 05/09/19 Cholecalciferol [Vitamin D3 (25 1,000 unit PO HS 05/09/19 05/09/19 Mcg = 1000 Iu)] Cyanocobalamin [Vitamin B-12] 500 mcg PO HS 05/09/19 05/09/19 Dextroamphetamine/Amphetamine 20 mg PO QAM PRN 05/09/19 05/09/19 [Adderall Xr] Dextroamphetamine/Amphetamine 20 mg PO DAILY PRN 05/09/19 05/09/19 [Adderall] Multivitamins, Thera [Multivitamin 1 tab PO HS 05/09/19 05/09/19 (formulary)] Allergies Allergy/AdvReac Type Severity Reaction Status Date / Time acetaminophen AdvReac Abdominal Verified 05/09/19 14:59 [From Tylenol-Codeine #3] Pain codeine AdvReac Abdominal Verified 05/09/19 14:59 [From Tylenol-Codeine #3] Pain Review of Systems ROS Statement: Those systems with pertinent positive or pertinent negative responses have been documented in the HPI. ROS Other: All systems not noted in ROS Statement are negative. Past Medical History Past Medical History: No Reported History History of Any Multi-Drug Resistant Organisms: None Reported Past Surgical History: Appendectomy, Cholecystectomy, Uterine Ablation Past Anesthesia/Blood Transfusion Reactions: No Reported Reaction Past Psychological History: ADD/ADHD, Anxiety, Depression Smoking Status: Former smoker Past Alcohol Use History: None Reported Past Drug Use History: None Reported - Past Family History Mother History Unknown: Yes Additional Family Medical History / Comment(s): patient adopted, knows of heart disease, breast cancer and diabetes General Exam - General Exam Comments Initial Comments: General: The patient is awake and alert Eye: +3 mm pupils are equal, round and reactive to light, extra-ocular movements are intact. No nystagmus. There is normal conjunctiva bilaterally. No signs of icterus. Ears, nose, mouth and throat: There are moist mucous membranes and no oral lesions. Neck: The neck is supple, there is no tenderness or JVD. Cardiovascular: There is a regular rate and rhythm. No murmur, rub or gallop is appreciated. Respiratory: Lungs are clear to auscultation, respirations are non-labored, breath sounds are equal. No wheezes, stridor, rales, or rhonchi. Gastrointestinal: Soft, non-distended, non-tender abdomen without masses or organomegaly noted. There is no rebound or guarding present. No CVA tenderness. Bowel sounds are unremarkable. States she become more nauseated when I push on the abdomen Musculoskeletal: Normal ROM, no tenderness. Strength 5/5. Sensation intact. Pulses equal bilaterally 2+. Neurological: A&O x 3. CN II-XII intact grossly, There are no obvious motor or sensory deficits. Coordination appears grossly intact. Speech is normal. Skin: Skin is warm and dry and no rashes or lesions are noted. No LE edema. Psychiatric: Cooperative, appropriate mood & affect, normal judgment. Limitations: no limitations Course Vital Signs 05/09/19 05/09/19 11:25 14:15 Pulse Rate 52 L 65 Respiratory 28 H 18 Rate Blood Pressure 170/83 140/78 O2 Sat by Pulse 99 100 Oximetry Medical Decision Making - Medical Decision Making Ventricular rate 46 bpm, TX interval 146 ms, QRS amish 80 ms, QT/QTc 506/442 ms. This is sinus bradycardia with premature atrial complexes otherwise normal EKG. EKG personally reviewed and interpreted as well as reviewed by attending provider Dr. Garcia 43-year-old female presenting for nausea vomiting diarrhea. Patient symptoms are not controlled after multiple antiemetics. Patient has ileus on CT no evidence consistent with OBSTRUCTION at this time. However this may occur due to ileus. Patient abdomen benign. EKG no acute findings--aside from bradycardia. Patient has no MACIAS or neurological complaints. Patient admits to diarrhea today. Patient will be admitted for symptomatic treatment and monitoring with serial abdominal exams, and further evaluation if symptoms are persistent. Dr. Villafuerte accepted admission after he spoke with my attending whom I discussed the case in detail. Patient agreeable to admission. - Lab Data Result diagrams: 05/09/19 11:48 05/09/19 11:48 Lab Results 05/09/19 05/09/19 05/09/19 Range/Units 11:48 11:48 11:48 WBC 12.1 H (3.8-10.6) k/uL RBC 4.99 (3.80-5.40) m/uL Hgb 14.1 (11.4-16.0) gm/dL Hct 43.6 (34.0-46.0) % MCV 87.5 (80.0-100.0) fL MCH 28.3 (25.0-35.0) pg MCHC 32.3 (31.0-37.0) g/dL RDW 12.7 (11.5-15.5) % Plt Count 362 (150-450) k/uL Neutrophils % 91 % Lymphocytes % 6 % Monocytes % 2 % Eosinophils % 0 % Basophils % 0 % Neutrophils # 11.0 H (1.3-7.7) k/uL Lymphocytes # 0.7 L (1.0-4.8) k/uL Monocytes # 0.3 (0-1.0) k/uL Eosinophils # 0.0 (0-0.7) k/uL Basophils # 0.0 (0-0.2) k/uL Sodium 139 (137-145) mmol/L Potassium 4.0 (3.5-5.1) mmol/L Chloride 105 (98-107) mmol/L Carbon Dioxide 24 (22-30) mmol/L Anion Gap 10 mmol/L BUN 12 (7-17) mg/dL Creatinine 0.66 (0.52-1.04) mg/dL Est GFR (CKD-EPI)AfAm >90 (>60 ml/min/1.73 sqM) Est GFR (CKD-EPI)NonAf >90 (>60 ml/min/1.73 sqM) Glucose 175 H (74-99) mg/dL Calcium 9.6 (8.4-10.2) mg/dL Total Bilirubin 0.4 (0.2-1.3) mg/dL AST 22 (14-36) U/L ALT 17 (4-34) U/L Alkaline Phosphatase 58 (38-126) U/L Troponin I <0.012 (0.000-0.034) ng/mL Total Protein 7.2 (6.3-8.2) g/dL Albumin 4.4 (3.5-5.0) g/dL Amylase 48 (30-110) U/L Lipase 115 (23-300) U/L Urine Color Urine Appearance (Clear) Urine pH (5.0-8.0) Ur Specific [place] (1.001-1.035) Urine Protein (Negative) Urine Glucose (UA) (Negative) Urine Ketones (Negative) Urine Blood (Negative) Urine Nitrite (Negative) Urine Bilirubin (Negative) Urine Urobilinogen (<2.0) mg/dL Ur Leukocyte Esterase (Negative) Urine RBC (0-5) /hpf Urine WBC (0-5) /hpf Ur Squamous Epith Cells (0-4) /hpf Urine Bacteria (None) /hpf Urine Mucus (None) /hpf 05/09/19 Range/Units 14:00 WBC (3.8-10.6) k/uL RBC (3.80-5.40) m/uL Hgb (11.4-16.0) gm/dL Hct (34.0-46.0) % MCV (80.0-100.0) fL MCH (25.0-35.0) pg MCHC (31.0-37.0) g/dL RDW (11.5-15.5) % Plt Count (150-450) k/uL Neutrophils % % Lymphocytes % % Monocytes % % Eosinophils % % Basophils % % Neutrophils # (1.3-7.7) k/uL Lymphocytes # (1.0-4.8) k/uL Monocytes # (0-1.0) k/uL Eosinophils # (0-0.7) k/uL Basophils # (0-0.2) k/uL Sodium (137-145) mmol/L Potassium (3.5-5.1) mmol/L Chloride (98-107) mmol/L Carbon Dioxide (22-30) mmol/L Anion Gap mmol/L BUN (7-17) mg/dL Creatinine (0.52-1.04) mg/dL Est GFR (CKD-EPI)AfAm (>60 ml/min/1.73 sqM) Est GFR (CKD-EPI)NonAf (>60 ml/min/1.73 sqM) Glucose (74-99) mg/dL Calcium (8.4-10.2) mg/dL Total Bilirubin (0.2-1.3) mg/dL AST (14-36) U/L ALT (4-34) U/L Alkaline Phosphatase (38-126) U/L Troponin I (0.000-0.034) ng/mL Total Protein (6.3-8.2) g/dL Albumin (3.5-5.0) g/dL Amylase (30-110) U/L Lipase (23-300) U/L Urine Color Light Yellow Urine Appearance Cloudy H (Clear) Urine pH 8.0 (5.0-8.0) Ur Specific [place] 1.034 (1.001-1.035) Urine Protein Negative (Negative) Urine Glucose (UA) Negative (Negative) Urine Ketones 2+ H (Negative) Urine Blood Negative (Negative) Urine Nitrite Negative (Negative) Urine Bilirubin Negative (Negative) Urine Urobilinogen <2.0 (<2.0) mg/dL Ur Leukocyte Esterase Negative (Negative) Urine RBC 2 (0-5) /hpf Urine WBC 3 (0-5) /hpf Ur Squamous Epith Cells 1 (0-4) /hpf Urine Bacteria Occasional H (None) /hpf Urine Mucus Rare H (None) /hpf Disposition Clinical Impression: Intractable nausea and vomiting Disposition: ADMITTED IP TO THIS [facility] Condition: Stable Is patient prescribed a controlled substance at d/c from ED?: No Time of Disposition: 14:52
[2019-05-09] MEDS ORDERED: LORazepam 2 MG/ML INJ IV STA ×2 (12:24→14:43)
[2019-05-09] MEDS ORDERED: METOCLOPRAMIDE 5 MG/ML 2 ML VIAL IVP STA (12:24)
[2019-05-09] MEDS ORDERED: diphenhydrAMINE 50 MG/ML 1 ML VIAL IVP STA (12:38)
--- NOTE | 2019-05-09 13:42 | CT ---
EXAMINATION TYPE: CT abdomen pelvis w con DATE OF EXAM: 05/09/2019 COMPARISON: None INDICATION: Upper mid abdominal pain DLP: 1007.1 mGycm, Automated exposure control for dose reduction was used. CONTRAST: 100 mL of Isovue 300. Study performed without Oral Contrast TECHNIQUE: Axial images were obtained from above the diaphragm to the pubic rami in the axial plane a t 5 mm thick sections. Reconstructed images are reviewed on the computer in the coronal plane. FINDINGS: Limited CT sections are obtained the lung bases. The lung bases are clear. CT ABDOMEN: Liver: Normal Spleen: Normal Pancreas: Normal Adrenal glands: The adrenal glands are normal. Gallbladder: Surgically absent Kidneys: No masses are evident. No hydronephrosis is present. No cysts are present. Delayed images were obtained through the kidneys, which remain unremarkable. Aorta: Vascular calcification is within the aorta. Inferior vena cava: Normal. CT PELVIS: There is a fluid-filled loops of bowel within the right lower midabdomen. Small bowel loop s proximal distal to this appear nondilated. Focal ileus should be considered. Loops of bowel within the abdomen and pelvis are otherwise normal. The studies performed without oral contrast limiting bowel evaluation. Appendix: Normal as visualized. Urinary bladder: Normal. Genitourinary structures: Uterus is prominent. Adnexal region on the right is prominent. Left adnexa is less prominent. Follicles are present on the left ovary. Osseous structures: No suspicious lytic or sclerotic lesions. IMPRESSIONS: 1. Focal ileus right midabdomen small bowel. 2. Large bulky uterus. Underlying fibroid should be considered. There appear to be follicles present on the bilateral ovaries.
[2019-05-09 14:16] LABS: Appearance,Urine Cloudy (Clear); Bacteria,Urine Occasional /hpf; Bilirubin,Urine Negative (Negative); Blood,Urine Negative (Negative); Color,Urine Light Yellow; Glucose,Urine (UA) Negative (Negative); Ketones,Urine 2+ (Negative); Leukocyte Esterase,Urine Negative (Negative); Mucus,Urine Rare /hpf; Nitrite,Urine Negative (Negative); Protein,Urine Negative (Negative); RBC,Urine 2 /hpf (0-5); Specific Gravity,Urine 1.034 (1.001-1.035); Squamous Epithelial Cell,Urine 1 /hpf (0-4); Urobilinogen,Urine <2.0 mg/dL (<2.0); WBC,Urine 3 /hpf (0-5)
[2019-05-09] MEDS ORDERED: NALOXONE 0.4 MG/ML 1 ML VIAL IV PRN (14:50)
[2019-05-09] MEDS ORDERED: ONDANSETRON 4 MG/2 ML VIAL IVP PRN (14:50)
[2019-05-09] MEDS ORDERED: NON FORMULARY DRUG (Dextroamphetamine/Amphetamine [Adderall] 20 MG) PO PRN (17:15)
[2019-05-09] MEDS: SODIUM CHLORIDE 0.9% 1,000 ML IV SCH ×2 (17:36→20:21)
[2019-05-09] MEDS: ONDANSETRON 4 MG/2 ML VIAL IVP PRN (17:36)
[2019-05-09] MEDS: HYDROmorphone 0.5 MG/0.5 ML SYRINGE IVP PRN ×2 (18:08→21:50)
[2019-05-09] MEDS: CYANOCOBALAMIN 500 MCG TAB PO SCH (20:15)
[2019-05-09] MEDS: MULTIVITAMINS, THERA 1 EACH TAB PO SCH (20:16)
[2019-05-09] MEDS: FAMOTIDINE 20 MG/2 ML VIAL IV SCH (20:20)
[2019-05-09] MEDS: lamoTRIgine 100 MG TAB PO SCH (20:20)
[2019-05-09] MEDS: METOCLOPRAMIDE 5 MG/ML 2 ML VIAL IVP PRN (20:21)
[2019-05-10 06:02] LABS: Basophils % (A) 0 %; Eosinophils % (A) 0 %; HCT 38.3 % (34.0-46.0); Lymphocytes # (A) 1.6 k/uL (1.0-4.8); Lymphocytes % (A) 14 %; MCH 29.1 pg (25.0-35.0); MCHC 33.9 g/dL (31.0-37.0); MCV 85.7 fL (80.0-100.0); Mean Platelet Volume 7.2; Monocytes # (A) 0.5 k/uL (0-1.0); Monocytes % (A) 4 %; Neutrophils % (A) 80 %; Platelet Count 325 k/uL (150-450); RBC 4.46 m/uL (3.80-5.40); RDW 12.8 % (11.5-15.5); WBC 11.3 k/uL (3.8-10.6)
[2019-05-10 06:10] LABS: African American GFR (CKD) >90 (>60 ml/min/1.73 sqM); Anion Gap 8 mmol/L; Blood Urea Nitrogen 8 mg/dL (7-17); Calcium 8.6 mg/dL (8.4-10.2); Carbon Dioxide 23 mmol/L (22-30); Chloride 105 mmol/L (98-107); Glucose 86 mg/dL (74-99); Non-African American GFR(CKD) >90 (>60 ml/min/1.73 sqM); Potassium 3.6 mmol/L (3.5-5.1); Sodium 136 mmol/L (137-145)
[2019-05-10] MEDS: FAMOTIDINE 20 MG/2 ML VIAL IV SCH ×2 (09:12→19:36)
[2019-05-10] MEDS: SODIUM CHLORIDE 0.9% 1,000 ML IV SCH ×3 (09:12→19:36)
[2019-05-10] MEDS: HYDROmorphone 0.5 MG/0.5 ML SYRINGE IVP PRN ×2 (09:23→12:29)
[2019-05-10] MEDS: METOCLOPRAMIDE 5 MG/ML 2 ML VIAL IVP PRN (09:23)
--- NOTE | 2019-05-10 13:15 | XR ---
EXAMINATION TYPE: XR abdomen 1V , 2 VIEWS DATE OF EXAM ORDERED: 05/10/2019 HISTORY: ileus. COMPARISON: None. FINDINGS: There is been a previous cholecystectomy. There is some air present in a nondistended colon. There is no evidence of obstruction. No free air i s seen. No unusual calcifications are seen. IMPRESSION: NO ACUTE ABDOMINAL ABNORMALITY..
[2019-05-10] MEDS: CYANOCOBALAMIN 500 MCG TAB PO SCH (19:33)
[2019-05-10] MEDS: MULTIVITAMINS, THERA 1 EACH TAB PO SCH (19:33)
[2019-05-10] MEDS: lamoTRIgine 100 MG TAB PO SCH (19:36)
--- NOTE | 2019-05-10 21:31 | P.HPIM ---
History of Present Illness H&P Date: 05/09/19 Chief Complaint: Nausea and vomiting Patient is a 43-year-old female with a known history of anxiety/depression, ADD/ADHD and previous history of smoking came to ER with the complaints of intractable nausea vomiting and diarrhea started around 7:30 AM in the morning. Patient says that she did have loose bowel movements. Patient did ate chicken last night but unsure if it is a cause for her symptoms.. Denied any hematemesis or melena. Patient is having abdominal pain after episodes of vomiting multiple times. Cramping type abdominal pain. Patient has been having uncontrollable symptoms which made her come to ER. No complaints of chest pain or shortness of. No cough or sputum production. No fever no chills. Denied any recent travel or sick contacts at home. CT abdomen pelvis showed focal ileus right midabdomen small bowel. Large bulky uterus. Underlying fibroid should be considered. There appears to be follicles present on the bilateral ovaries. WBC 12.1 Liver enzymes and lites within normal limits. UA is cloudy but no other evidence of infection. EKG showed sinus bradycardia with heart rate in 50s Review of Systems Constitutional: Patient denies any fever or chills . No generalized weakness or weight loss. Abdomen: Intractable nausea and vomiting and diarrhea and abdominal pain Cardiovascular: Patient denies any chest pain or short of breath no palpitations. Respiratory: patient denied any cough is from production. No shortness of breath Neurologic: Patient denied any numbness or tingling headache. Musculoskeletal: Patient denies any complaints of joint swelling or deformity. Skin: Negative Psychiatric: Negative Endocrine: No heat or cold intolerance. No recent weight gain. Genitourinary: No dysuria or hematuria. All other 14 point ROS negative except the above Past Medical History Past Medical History: No Reported History History of Any Multi-Drug Resistant Organisms: None Reported Past Surgical History: Appendectomy, Cholecystectomy, Uterine Ablation Past Anesthesia/Blood Transfusion Reactions: No Reported Reaction Past Psychological History: ADD/ADHD, Anxiety, Depression Smoking Status: Former smoker Past Alcohol Use History: None Reported Past Drug Use History: None Reported - Past Family History Mother History Unknown: Yes Additional Family Medical History / Comment(s): patient adopted, knows of heart disease, breast cancer and diabetes Medications and Allergies Home Medications Medication Instructions Recorded Confirmed Type lamoTRIgine [LaMICtal] 100 mg PO HS 10/26/17 05/09/19 History busPIRone HCL 15 mg PO QID PRN 08/27/18 05/09/19 History Ascorbic Acid [Vitamin C] 500 mg PO HS 05/09/19 05/09/19 History Cholecalciferol [Vitamin D3 (25 1,000 unit PO HS 05/09/19 05/09/19 History Mcg = 1000 Iu)] Cyanocobalamin [Vitamin B-12] 500 mcg PO HS 05/09/19 05/09/19 History Dextroamphetamine/Amphetamine 20 mg PO QAM PRN 05/09/19 05/09/19 History [Adderall Xr] Dextroamphetamine/Amphetamine 20 mg PO DAILY PRN 05/09/19 05/09/19 History [Adderall] Multivitamins, Thera [Multivitamin 1 tab PO HS 05/09/19 05/09/19 History (formulary)] Allergies Allergy/AdvReac Type Severity Reaction Status Date / Time acetaminophen AdvReac Abdominal Verified 05/09/19 14:59 [From Tylenol-Codeine #3] Pain codeine AdvReac Abdominal Verified 05/09/19 14:59 [From Tylenol-Codeine #3] Pain Physical Exam Vitals: Vital Signs Temp Pulse Resp BP Pulse Ox 05/09/19 16:57 98.1 F 65 16 139/78 100 05/09/19 14:15 65 18 140/78 100 05/09/19 11:25 52 L 28 H 170/83 99 Intake and Output 05/09/19 05/09/19 05/09/19 06:59 14:59 22:59 Other: Weight 85.275 kg PHYSICAL EXAMINATION: Patient is lying in the bed comfortably, appears to be in mild distress, awake alert and oriented.. HEENT: Normocephalic. Neck is supple. Pupils reactive. Nostrils clear. Oral cavity is moist. Ears reveal no drainage. Neck reveals no JVD, carotid bruits, or thyromegaly. CHEST EXAMINATION: Trachea is central. Symmetrical expansion. Lung lópez clear to auscultation and percussion. CARDIAC: Normal S1, S2 with no gallops. No murmurs ABDOMEN: Soft. Mild epigastric tenderness. Bowel sounds present. No guarding no rigidity. Andabdominal bruits. Extremities: reveal no edema. No clubbing or cyanosis Neurologically awake, alert, oriented x3 with well-coordinated movements. No focal deficits noted Skin: No rash or skin lesions. Psychiatric: Coperative. Nonsuicidal Musculoskeletal: No joint swelling or deformity. Normal range of motion. Results CBC & Chem 7: 05/10/19 05:32 05/10/19 05:32 Labs: Abnormal Lab Results - Last 24 Hours (Table) 05/09/19 05/09/19 05/09/19 Range/Units 11:48 11:48 14:00 WBC 12.1 H (3.8-10.6) k/uL Neutrophils # 11.0 H (1.3-7.7) k/uL Lymphocytes # 0.7 L (1.0-4.8) k/uL Glucose 175 H (74-99) mg/dL Urine Appearance Cloudy H (Clear) Urine Ketones 2+ H (Negative) Urine Bacteria Occasional H (None) /hpf Urine Mucus Rare H (None) /hpf Thrombosis Risk Factor Assmnt - DVT/VTE Prophylaxis DVT/VTE Prophylaxis: Pharmacologic Prophylaxis ordered Assessment and Plan Assessment: Intractable nausea vomiting and diarrhea with abdominal pain. Likely acute gastroenteritis. Small bowel ileus Anxiety/depression ADD/ADHD VS history of smoking DVT prophylaxis Plan: Patient will be continued on IV hydration and symptomatic management for nausea and vomiting. Continue with home medications for anxiety. Follow closely and continue the current management. Time with Patient: Greater than 30
--- NOTE | 2019-05-10 21:33 | P.PN ---
Subjective Progress Note Date: 05/10/19 Principal diagnosis: Intractable nausea vomiting and abdominal pain Patient is a 43-year-old female with a known history of anxiety/depression, ADD/ADHD and previous history of smoking came to ER with the complaints of intractable nausea vomiting and diarrhea started around 7:30 AM in the morning. Patient says that she did have loose bowel movements. Patient did ate chicken last night but unsure if it is a cause for her symptoms.. Denied any hematemesis or melena. Patient is having abdominal pain after episodes of vomiting multiple times. Cramping type abdominal pain. Patient has been having uncontrollable symptoms which made her come to ER. No complaints of chest pain or shortness of. No cough or sputum production. No fever no chills. Denied any recent travel or sick contacts at home. CT abdomen pelvis showed focal ileus right midabdomen small bowel. Large bulky uterus. Underlying fibroid should be considered. There appears to be follicles present on the bilateral ovaries. WBC 12.1 Liver enzymes and lites within normal limits. UA is cloudy but no other evidence of infection. EKG showed sinus bradycardia with heart rate in 50s 05/10/2019 Patient complains of abdominal cramps. Not passing flatus. Nausea improved. Repeat x-ray of the abdomen was ordered and will advance diet if clinically improving. results chest pain or shortness of breath. no headache or dizziness or lightheadedness. patient is also complaining of cramping pain on the both sides of the lumbar spine. anticipate discharge next 24 hours working improvement current medications reviewed. Objective - Vital Signs Vital signs: Vital Signs Temp 98.0 F 05/10/19 19:34 Pulse 61 05/10/19 20:00 Resp 17 05/10/19 20:00 BP 135/74 05/10/19 19:34 Pulse Ox 98 05/10/19 19:34 Intake & Output 05/10/19 05/10/19 05/11/19 06:59 18:59 06:59 Intake Total 1000 400 Balance 1000 400 Intake: Intake, IV Titration 1000 Amount Sodium Chloride 0.9% 1, 1000 000 ml @ 125 mls/hr IV . Q[facility] Rx#:[id number] Oral 200 Other 200 Other: Voiding Method Toilet Toilet - Exam PHYSICAL EXAMINATION: Patient is lying in the bed comfortably, no acute distress, awake alert and oriented.. HEENT: Normocephalic. Neck is supple. Pupils reactive. Nostrils clear. Oral cavity is moist. Ears reveal no drainage. Neck reveals no JVD, carotid bruits, or thyromegaly. CHEST EXAMINATION: Trachea is central. Symmetrical expansion. Lung lópez clear to auscultation and percussion. CARDIAC: Normal S1, S2 with no gallops. No murmurs ABDOMEN: Soft. Bowel sounds normal. No organomegaly. No abdominal bruits. Extremities: reveal no edema. No clubbing or cyanosis Neurologically awake, alert, oriented x3 with well-coordinated movements. No focal deficits noted Skin: No rash or skin lesions. Psychiatric: Coperative. Nonsuicidal Musculoskeletal: No joint swelling or deformity. Normal range of motion. - Labs CBC & Chem 7: 05/10/19 05:32 05/10/19 05:32 Labs: Abnormal Lab Results - Last 24 Hours (Table) 05/10/19 05/10/19 Range/Units 05:32 05:32 WBC 11.3 H (3.8-10.6) k/uL Neutrophils # 9.0 H (1.3-7.7) k/uL Sodium 136 L (137-145) mmol/L Assessment and Plan Assessment: Intractable nausea vomiting and diarrhea with abdominal pain. Likely acute gastroenteritis. Improving clinically. Small bowel ileus Anxiety/depression ADD/ADHD VS history of smoking DVT prophylaxis Plan: Patient will be continued on IV hydration and symptomatic management for nausea and vomiting. Repeat abdominal x-ray was ordered. Continue with home medications for anxiety. Follow closely and continue the current management. Time with Patient: Greater than 30
[2019-05-10] MEDS: busPIRone HCl 5 MG TAB PO PRN (23:03)
[2019-05-11] MEDS: ONDANSETRON 4 MG/2 ML VIAL IVP PRN (07:40)
[2019-05-11] MEDS: FAMOTIDINE 20 MG/2 ML VIAL IV SCH ×2 (07:40→19:31)
[2019-05-11] MEDS: busPIRone HCl 5 MG TAB PO PRN (07:48)
[2019-05-11] MEDS: METOCLOPRAMIDE 5 MG/ML 2 ML VIAL IVP PRN ×3 (08:16→18:05)
[2019-05-11] MEDS: HYDROmorphone 0.5 MG/0.5 ML SYRINGE IVP PRN ×5 (08:21→21:24)
[2019-05-11] MEDS ORDERED: METOCLOPRAMIDE 5 MG/ML 2 ML VIAL IVP STA (09:28)
[2019-05-11] MEDS: SODIUM CHLORIDE 0.9% 1,000 ML IV SCH ×3 (09:41→19:31)
[2019-05-11] MEDS: LORazepam 2 MG/ML INJ IV PRN ×3 (09:52→19:41)
[2019-05-11] MEDS ORDERED: DICYCLOMINE 20 MG TAB PO PRN (15:02)
[2019-05-11] MEDS ORDERED: DICYCLOMINE 10 MG/ML 2 ML AMP IM STA (15:07)
[2019-05-11] MEDS: MULTIVITAMINS, THERA 1 EACH TAB PO SCH (19:27)
[2019-05-11] MEDS: CYANOCOBALAMIN 500 MCG TAB PO SCH (19:27)
[2019-05-11] MEDS: lamoTRIgine 100 MG TAB PO SCH (19:31)
[2019-05-11] MEDS: DICYCLOMINE 20 MG TAB PO PRN (21:24)
--- NOTE | 2019-05-11 23:34 | P.PN ---
Subjective Progress Note Date: 05/11/19 Principal diagnosis: Intractable nausea vomiting and abdominal pain Patient is a 43-year-old female with a known history of anxiety/depression, ADD/ADHD and previous history of smoking came to ER with the complaints of intractable nausea vomiting and diarrhea started around 7:30 AM in the morning. Patient says that she did have loose bowel movements. Patient did ate chicken last night but unsure if it is a cause for her symptoms.. Denied any hematemesis or melena. Patient is having abdominal pain after episodes of vomiting multiple times. Cramping type abdominal pain. Patient has been having uncontrollable symptoms which made her come to ER. No complaints of chest pain or shortness of. No cough or sputum production. No fever no chills. Denied any recent travel or sick contacts at home. CT abdomen pelvis showed focal ileus right midabdomen small bowel. Large bulky uterus. Underlying fibroid should be considered. There appears to be follicles present on the bilateral ovaries. WBC 12.1 Liver enzymes and lites within normal limits. UA is cloudy but no other evidence of infection. EKG showed sinus bradycardia with heart rate in 50s 05/10/2019 Patient complains of abdominal cramps. Not passing flatus. Nausea improved. Repeat x-ray of the abdomen was ordered and will advance diet if clinically improving. results chest pain or shortness of breath. no headache or dizziness or lightheadedness. patient is also complaining of cramping pain on the both sides of the lumbar spine. anticipate discharge next 24 hours working improvement. 05/11/2019 Patient is having worsening cramping abdominal pain today. Mainly in the mid abdomen. Associated with dry heaves and severe nausea. Patient did have a bowel movement yesterday. No complains of chest pain or shortness of breath. Patient was continued on Zofran, Pepcid IV and Reglan IV was given. Patient was started on Bentyl 20 mg 4 times a day as needed for abdominal cramps/spasms. Gastroenterology service was consulted. Patient has been afebrile. Anticipate discharge in the next 24 hours with clinical improvement. current medications reviewed. Objective - Vital Signs Vital signs: Vital Signs Temp 98.0 F 05/11/19 15:48 Pulse 65 05/11/19 15:48 Resp 18 05/11/19 15:48 BP 151/89 05/11/19 15:48 Pulse Ox 97 05/11/19 15:48 Intake & Output 05/10/19 05/11/19 05/11/19 18:59 06:59 18:59 Intake Total 400 100 Balance 400 100 Intake: Oral 200 Other 200 100 Other: Voiding Method Toilet Toilet Toilet # Voids 1 - Exam PHYSICAL EXAMINATION: Patient is lying in the bed comfortably, mild distress, awake alert and oriented.. HEENT: Normocephalic. Neck is supple. Pupils reactive. Nostrils clear. Oral cavity is moist. Ears reveal no drainage. Neck reveals no JVD, carotid bruits, or thyromegaly. CHEST EXAMINATION: Trachea is central. Symmetrical expansion. Lung lópez clear to auscultation and percussion. CARDIAC: Normal S1, S2 with no gallops. No murmurs ABDOMEN: Soft. Mildly abdominal tenderness. No guarding no rigidity. Bowel sounds normal. No organomegaly. No abdominal bruits. Extremities: reveal no edema. No clubbing or cyanosis Neurologically awake, alert, oriented x3 with well-coordinated movements. No f ocal deficits noted Skin: No rash or skin lesions. Psychiatric: Coperative. Nonsuicidal Musculoskeletal: No joint swelling or deformity. Normal range of motion. - Labs CBC & Chem 7: 05/10/19 05:32 05/10/19 05:32 Assessment and Plan Assessment: Intractable nausea vomiting and diarrhea with abdominal pain. Likely acute gastroenteritis Small bowel ileus Anxiety/depression ADD/ADHD VS history of smoking DVT prophylaxis Plan: Patient will be continued on IV hydration and symptomatic management for nausea and vomiting. Repeat abdominal x-ray showed nonspecific abdomen.. Continue with home medications for anxiety. Follow closely and continue the current management. Time with Patient: Greater than 30
[2019-05-12] MEDS: HYDROmorphone 0.5 MG/0.5 ML SYRINGE IVP PRN ×6 (01:21→19:42)
[2019-05-12] MEDS: METOCLOPRAMIDE 5 MG/ML 2 ML VIAL IVP PRN ×2 (01:21→08:56)
[2019-05-12] MEDS: LORazepam 2 MG/ML INJ IV PRN ×4 (03:42→23:13)
[2019-05-12] MEDS: DICYCLOMINE 20 MG TAB PO PRN (06:16)
[2019-05-12 06:52] LABS: Basophils % (A) 0 %; Eosinophils % (A) 0 %; HCT 36.4 % (34.0-46.0); HGB 12.3 gm/dL (11.4-16.0); Lymphocytes # (A) 1.7 k/uL (1.0-4.8); Lymphocytes % (A) 19 %; MCH 28.8 pg (25.0-35.0); MCHC 33.9 g/dL (31.0-37.0); MCV 84.8 fL (80.0-100.0); Mean Platelet Volume 7.5; Monocytes # (A) 0.5 k/uL (0-1.0); Monocytes % (A) 6 %; Neutrophils # (A) 6.5 k/uL (1.3-7.7); Neutrophils % (A) 73 %; Platelet Count 276 k/uL (150-450); RBC 4.29 m/uL (3.80-5.40); RDW 12.6 % (11.5-15.5); WBC 8.9 k/uL (3.8-10.6)
[2019-05-12 07:01] LABS: African American GFR (CKD) >90 (>60 ml/min/1.73 sqM); Anion Gap 7 mmol/L; Blood Urea Nitrogen 4 mg/dL (7-17); Calcium 8.2 mg/dL (8.4-10.2); Carbon Dioxide 25 mmol/L (22-30); Chloride 105 mmol/L (98-107); Glucose 84 mg/dL (74-99); Non-African American GFR(CKD) >90 (>60 ml/min/1.73 sqM); Potassium 3.6 mmol/L (3.5-5.1); Sodium 137 mmol/L (137-145)
[2019-05-12] MEDS: FAMOTIDINE 20 MG/2 ML VIAL IV SCH ×2 (08:56→19:41)
[2019-05-12] MEDS: SODIUM CHLORIDE 0.9% 1,000 ML IV SCH ×2 (08:56→16:04)
--- NOTE | 2019-05-12 10:07 | P.PN ---
Subjective Patient is a 43-year-old female with a known history of anxiety/depression, ADD/ADHD and previous history of smoking came to ER with the complaints of intractable nausea vomiting and diarrhea started around 7:30 AM in the morning. Patient says that she did have loose bowel movements. Patient did ate chicken last night but unsure if it is a cause for her symptoms.. Denied any hematemesis or melena. Patient is having abdominal pain after episodes of vomiting multiple times. Cramping type abdominal pain. Patient has been having uncontrollable symptoms which made her come to ER. No complaints of chest pain or shortness of. No cough or sputum production. No fever no chills. Denied any recent travel or sick contacts at home. CT abdomen pelvis showed focal ileus right midabdomen small bowel. Large bulky uterus. Underlying fibroid should be considered. There appears to be follicles present on the bilateral ovaries. WBC 12.1 Liver enzymes and lites within normal limits. UA is cloudy but no other evidence of infection. EKG showed sinus bradycardia with heart rate in 50s 05/10/2019 Patient complains of abdominal cramps. Not passing flatus. Nausea improved. Repeat x-ray of the abdomen was ordered and will advance diet if clinically improving. results chest pain or shortness of breath. no headache or dizziness or lighthea dedness. patient is also complaining of cramping pain on the both sides of the lumbar spine. anticipate discharge next 24 hours working improvement. 05/11/2019 Patient is having worsening cramping abdominal pain today. Mainly in the mid abdomen. Associated with dry heaves and severe nausea. Patient did have a bowel movement yesterday. No complains of chest pain or shortness of breath. Patient was continued on Zofran, Pepcid IV and Reglan IV was given. Patient was started on Bentyl 20 mg 4 times a day as needed for abdominal cramps/spasms. Gastroenterology service was consulted. Patient has been afebrile. Anticipate discharge in the next 24 hours with clinical improvement. Subjective 05/12/2019 Patient presents with abdominal pain no vomiting, her vomiting is stopped since yesterday, it was without blood, however patient still nausea, she still have low appetite, she ate only have been on and half cup of juice only since morning. She still complaining of from abdominal pain. Umbilical and RLQ pain and tenderness, however is better compared when she came in it was about 9/10 and currently 3.5/10 as per patient. she did not have bowel movement since yesterday, she had loose bowel movement in the morning yesterday but not anymore Patient states that she is aware of her problem of large uterus and fibroids and she has very bad menstrual cycle that she follow up with lockstitch tunnel elastic operator Dr. Jacome last year and she status post ablation however after 1 year her menstrual problem starting to come back again, patient was instructed to follow up with her lockstitch tunnel elastic operator as an outpatient and she agrees. Vitals are stable. he is back to normal at 8.9K, electrolytes are normal. We'll consult GI team and developed abdominal x-ray since patient is still symptomatic Objective - Vital Signs Vital signs: Vital Signs Temp 98.2 F 05/12/19 07:33 Pulse 75 05/12/19 07:33 Resp 18 05/12/19 08:00 BP 124/78 05/12/19 07:33 Pulse Ox 96 05/12/19 07:33 Intake & Output 05/11/19 05/12/19 05/12/19 18:59 06:59 18:59 Intake Total 500 Balance 500 Intake: Other 500 Other: Voiding Method Toilet Toilet Toilet # Voids 1 1 - Exam GENERAL: The patient is alert and oriented x3, not in any acute distress. Well developed, well nourished. HEENT: Pupils are round and equally reacting to light. EOMI. No scleral icterus. No conjunctival pallor. Normocephalic, atraumatic. No pharyngeal erythema. No thyromegaly. CARDIOVASCULAR: S1 and S2 present. No murmurs, rubs, or gallops. PULMONARY: Chest is clear to auscultation, no wheezing or crackles. -ABDOMEN: Soft, mild debbie-Umbilical and RLQ pain and tenderness, no guarding or rebound tenderness nondistended, normoactive bowel sounds. No palpable organomegaly. MUSCULOSKELETAL: No joint swelling or deformity. EXTREMITIES: No cyanosis, clubbing, or pedal edema. NEUROLOGICAL: Gross neurological examination did not reveal any focal deficits. SKIN: No rashes. no petechiae. - Labs CBC & Chem 7: 05/12/19 05:28 05/12/19 05:28 Labs: Abnormal Lab Results - Last 24 Hours (Table) 05/12/19 Range/Units 05:28 BUN 4 L (7-17) mg/dL Calcium 8.2 L (8.4-10.2) mg/dL Assessment and Plan Assessment: Intractable nausea vomiting and diarrhea with abdominal pain. Likely acute gastroenteritis Small bowel ileus Anxiety/depression ADD/ADHD VS history of smoking Plan: This is a pleasant 43 a soft female who presents because of abdominal pain and vomiting suspicious for gastroenteritis and abdominal ileus. She still have symptoms are going to do abdominal x-ray and ask for GI consult. Continue with Bentyl and hydration. Advance diet to liquid diet Labs and medication were reviewed.. Continue same treatment. Continue with symptomatic treatment. Resume home medication. Monitor lytes and vitals. DVT and GI prophylaxis. Further recommendations of the clinical course of the patient DVT prophylaxis: Subcutaneous Lovenox GI Prophylaxis: Pepcid Prognosis is guarded
--- NOTE | 2019-05-12 11:09 | XR ---
EXAMINATION TYPE: XR abdomen 1V DATE OF EXAM: 05/12/2019 Comparison: 05/10/2019 Clinical History: 43-year-old female follow-up ileus Findings: Cholecystectomy clips. No dilated small bowel. Supine imaging limited for assessment of free air. Gassy colon is present. Multiple pelvic phleboliths. Impression: Persistent gassy colon could represent a mild colonic ileus. No evidence for bowel obstruction.
[2019-05-12] MEDS: ENOXAPARIN 40 MG/0.4 ML SYRINGE SQ SCH (11:57)
[2019-05-12] MEDS: METOCLOPRAMIDE 5 MG/ML 2 ML VIAL IVP SCH ×3 (11:58→23:13)
[2019-05-12] MEDS: DICYCLOMINE 20 MG TAB PO SCH ×3 (11:58→23:13)
[2019-05-12 16:57] LABS: Glucose,Whole Blood 78 mg/dL (75-99)
[2019-05-12] MEDS: CYANOCOBALAMIN 500 MCG TAB PO SCH (19:34)
[2019-05-12] MEDS: MULTIVITAMINS, THERA 1 EACH TAB PO SCH (19:34)
[2019-05-12] MEDS: lamoTRIgine 100 MG TAB PO SCH (19:41)
--- NOTE | 2019-05-12 22:34 | CONS ---
CONSULTATION DATE OF DICTATION: May 12, 2019 REASON FOR CONSULTATION: Nausea, vomiting, diarrhea. HISTORY OF PRESENT ILLNESS: The patient is a 43-year-old pleasant white female admitted to the hospital with acute onset of nausea, vomiting, diarrhea that started about 4 days ago. She threw up several times and had several loose watery bowel movements with no rectal bleeding. She came to the emergency room 2 days ago and since then has been on symptomatic and supportive care and symptoms are gradually improving. In fact, today she was slightly nauseated, but she had no further episodes of diarrhea. She reports no abdominal pain. No fever, chills, night sweats. Never had these symptoms in the past. No other family members with similar symptoms. She denies any new medications that have been given to her recently. PAST MEDICAL HISTORY: Significant for anxiety and depression. MEDICATIONS: At home include: 1. Buspirone. 2. Lamictal. 3. . 4. Vitamin C. 5. Vitamin D3. 6. Multivitamin. 7. Vitamin B12. ALLERGIES: CODEINE and TYLENOL #3. FAMILY HISTORY: Unremarkable. REVIEW OF SYSTEMS: Cardiopulmonary: No chest pain, no shortness of breath. GENITOURINARY: No dysuria or hematuria. MUSCULOSKELETAL unremarkable. SKIN unremarkable. ENDOCRINE unremarkable. PSYCHIATRIC unremarkable. NEUROLOGICAL: Unremarkable. ENT/vision unremarkable. CONSTITUTIONAL: No recent weight loss. No fever, chills, night sweats. PHYSICAL EXAMINATION: Appears comfortable. No apparent distress. Vital signs is stable. Blood pressure is 124/78, pulse rate 75, temperature 98.2. HEENT examination unremarkable. Conjunctivae pink. Sclerae anicteric. Oral cavity no lesions. NECK: No JVD or lymph node enlargement. CHEST: Clear to auscultation. HEART: Regular rate and rhythm. ABDOMEN: Soft, bowel sounds are positive. No organomegaly. EXTREMITIES: No pedal edema. SKIN no rashes. NEUROLOGIC: Alert and oriented x3. No focal deficits. LABS: At the time of admission to the hospital on May 09, WBC 12.1, hemoglobin 14, platelets normal. Today, all her labs are completely within normal limits. Stool studies were requested but were not done since she did have any diarrhea since being in the hospital. IMPRESSION: This is a lady who presents with acute onset of nausea, vomiting, diarrhea for 4 days duration. Most likely, we are dealing with viral gastroenteritis which is resolving. Her symptoms have significantly improved except for nausea. She is able to tolerate diet well. Labs are within normal limits. RECOMMENDATIONS: 1. Continue with antiemetics. 2. Advance diet as tolerated. 3. She can be discharged home today with outpatient followup as needed. Thank you for this consultation. WOLFGANG / CHANDANAN: [id number] /
[2019-05-13] MEDS: SODIUM CHLORIDE 0.9% 1,000 ML IV SCH (02:49)
[2019-05-13] MEDS: HYDROmorphone 0.5 MG/0.5 ML SYRINGE IVP PRN (05:14)
[2019-05-13] MEDS: METOCLOPRAMIDE 5 MG/ML 2 ML VIAL IVP SCH ×2 (05:14→12:25)
[2019-05-13 06:42] LABS: Basophils % (A) 0 %; Eosinophils # (A) 0.1 k/uL (0-0.7); Eosinophils % (A) 1 %; HCT 36.7 % (34.0-46.0); HGB 12.4 gm/dL (11.4-16.0); Lymphocytes # (A) 1.3 k/uL (1.0-4.8); Lymphocytes % (A) 18 %; MCH 28.7 pg (25.0-35.0); MCV 84.5 fL (80.0-100.0); Mean Platelet Volume 7.2; Monocytes # (A) 0.4 k/uL (0-1.0); Monocytes % (A) 5 %; Neutrophils # (A) 5.2 k/uL (1.3-7.7); Neutrophils % (A) 74 %; Platelet Count 290 k/uL (150-450); RBC 4.34 m/uL (3.80-5.40); RDW 12.8 % (11.5-15.5); WBC 7.1 k/uL (3.8-10.6)
[2019-05-13 07:00] LABS: African American GFR (CKD) >90 (>60 ml/min/1.73 sqM); Anion Gap 7 mmol/L; Blood Urea Nitrogen 4 mg/dL (7-17); Calcium 8.3 mg/dL (8.4-10.2); Carbon Dioxide 26 mmol/L (22-30); Chloride 105 mmol/L (98-107); Glucose 85 mg/dL (74-99); Magnesium 1.6 mg/dL (1.6-2.3); Non-African American GFR(CKD) >90 (>60 ml/min/1.73 sqM); Potassium 3.5 mmol/L (3.5-5.1); Sodium 138 mmol/L (137-145)
--- NOTE | 2019-05-13 08:28 | P.GSCN ---
History of Present Illness Consult date: 05/13/19 Reason for Consult: Ileus History of present illness: 43-year-old female presented to the emergency department with complaints of nausea, vomiting and diarrhea episodes. She states that this started approximately 3 days ago. She states that initially, she was unable to control her nausea or vomiting and had multiple episodes of vomiting. Since her admission, her vomiting has improved, however she continues to have nausea episodes. She states that the trial of Zofran was unsuccessful but it appears that Reglan seems to be helping. She states that over the past day, she has begun to have flatus and has had loose, watery diarrhea one time. She states her abdominal pain is improving. She denies having any issues like this previously. She states her previous surgical history is an appendectomy, cholecystectomy and hernia repair. She denies ever having a colonoscopy. This morning, she tolerated her breakfast. She states that she does have a low appetite at this time. Review of Systems All systems: negative Past Medical History Past Medical History: No Reported History History of Any Multi-Drug Resistant Organisms: None Reported Past Surgical History: Appendectomy, Cholecystectomy, Uterine Ablation Past Anesthesia/Blood Transfusion Reactions: No Reported Reaction Past Psychological History: ADD/ADHD, Anxiety, Depression Smoking Status: Former smoker Past Alcohol Use History: None Reported Past Drug Use History: None Reported - Past Family History Mother History Unknown: Yes Additional Family Medical History / Comment(s): patient adopted, knows of heart disease, breast cancer and diabetes Medications and Allergies Home Medications Medication Instructions Recorded Confirmed Type lamoTRIgine [LaMICtal] 100 mg PO HS 10/26/17 05/09/19 History busPIRone HCL 15 mg PO QID PRN 08/27/18 05/09/19 History Ascorbic Acid [Vitamin C] 500 mg PO HS 05/09/19 05/09/19 History Cholecalciferol [Vitamin D3 (25 1,000 unit PO HS 05/09/19 05/09/19 History Mcg = 1000 Iu)] Cyanocobalamin [Vitamin B-12] 500 mcg PO HS 05/09/19 05/09/19 History Dextroamphetamine/Amphetamine 20 mg PO QAM PRN 05/09/19 05/09/19 History [Adderall Xr] Dextroamphetamine/Amphetamine 20 mg PO DAILY PRN 02/14/20 02/14/20 History [Adderall] Multivitamins, Thera [Multivitamin 1 tab PO HS 05/09/19 05/09/19 History (formulary)] Allergies Allergy/AdvReac Type Severity Reaction Status Date / Time acetaminophen AdvReac Abdominal Verified 05/09/19 14:59 [From Tylenol-Codeine #3] Pain codeine AdvReac Abdominal Verified 05/09/19 14:59 [From Tylenol-Codeine #3] Pain Surgical - Exam Osteopathic Statement: *. No significant issues noted on an osteopathic structural exam other than those noted in the History and Physical/Consult. Vital Signs Pulse Resp BP Pulse Ox 52 L 28 H 170/83 99 05/09/19 11:25 05/09/19 11:25 05/09/19 11:25 05/09/19 11:25 - General well nourished, no distress - Eyes PERRL - ENT normal mucosa, no hearing loss - Neck trachea midline - Respiratory normal respiratory effort - Abdomen Soft, nontender, nondistended, no rebound, no guarding - Psychiatric oriented to time, oriented to person, oriented to place Results - Labs 05/13/19 05:55 05/13/19 05:55 Abnormal Lab Results - Last 24 Hours (Table) 05/13/19 Range/Units 05:55 BUN 4 L (7-17) mg/dL Calcium 8.3 L (8.4-10.2) mg/dL Diabetes panel 05/13/19 Range/Units 05:55 Sodium 138 (137-145) mmol/L Potassium 3.5 (3.5-5.1) mmol/L Chloride 105 (98-107) mmol/L Carbon Dioxide 26 (22-30) mmol/L BUN 4 L (7-17) mg/dL Creatinine 0.62 (0.52-1.04) mg/dL Glucose 85 (74-99) mg/dL Calcium 8.3 L (8.4-10.2) mg/dL Thyroid panel 05/13/19 Range/Units 05:55 TSH 1.510 (0.465-4.680) mIU/L Calcium panel 05/13/19 Range/Units 05:55 Calcium 8.3 L (8.4-10.2) mg/dL Pituitary panel 05/13/19 Range/Units 05:55 Sodium 138 (137-145) mmol/L Potassium 3.5 (3.5-5.1) mmol/L Chloride 105 (98-107) mmol/L Carbon Dioxide 26 (22-30) mmol/L BUN 4 L (7-17) mg/dL Creatinine 0.62 (0.52-1.04) mg/dL Glucose 85 (74-99) mg/dL Calcium 8.3 L (8.4-10.2) mg/dL TSH 1.510 (0.465-4.680) mIU/L Adrenal panel 05/13/19 Range/Units 05:55 Sodium 138 (137-145) mmol/L Potassium 3.5 (3.5-5.1) mmol/L Chloride 105 (98-107) mmol/L Carbon Dioxide 26 (22-30) mmol/L BUN 4 L (7-17) mg/dL Creatinine 0.62 (0.52-1.04) mg/dL Glucose 85 (74-99) mg/dL Calcium 8.3 L (8.4-10.2) mg/dL Assessment and Plan (1) Intractable nausea and vomiting Narrative/Plan: Patient's vomiting episodes have appeared to improve during her admission. Nausea is still requiring medication. At this point, I did review the CT of the abdomen and pelvis and multiple x-rays during her admission and it does appear that the patient has a resolving ileus, likely secondary to gastroenteritis episode. She does appear to overall be improving. There is no plan for any surgical intervention. Continue to treat with antibiotics along with advancing diet as tolerated. Current Visit: Yes Status: Acute Code(s): R11.2 - NAUSEA WITH VOMITING, UNSPECIFIED SNOMED Code(s): 943935555
--- NOTE | 2019-05-13 09:19 | P.PN ---
Subjective Patient is a 43-year-old female with a known history of anxiety/depression, ADD/ADHD and previous history of smoking came to ER with the complaints of intractable nausea vomiting and diarrhea started around 7:30 AM in the morning. Patient says that she did have loose bowel movements. Patient did ate chicken last night but unsure if it is a cause for her symptoms.. Denied any hematemesis or melena. Patient is having abdominal pain after episodes of vomiting multiple times. Cramping type abdominal pain. Patient has been having uncontrollable symptoms which made her come to ER. No complaints of chest pain or shortness of. No cough or sputum production. No fever no chills. Denied any recent travel or sick contacts at home. CT abdomen pelvis showed focal ileus right midabdomen small bowel. Large bulky uterus. Underlying fibroid should be considered. There appears to be follicles present on the bilateral ovaries. WBC 12.1 Liver enzymes and lites within normal limits. UA is cloudy but no other evidence of infection. EKG showed sinus bradycardia with heart rate in 50s 05/10/2019 Patient complains of abdominal cramps. Not passing flatus. Nausea improved. Repeat x-ray of the abdomen was ordered and will advance diet if clinically improving. results chest pain or shortness of breath. no headache or dizziness or lighthea dedness. patient is also complaining of cramping pain on the both sides of the lumbar spine. anticipate discharge next 24 hours working improvement. 05/11/2019 Patient is having worsening cramping abdominal pain today. Mainly in the mid abdomen. Associated with dry heaves and severe nausea. Patient did have a bowel movement yesterday. No complains of chest pain or shortness of breath. Patient was continued on Zofran, Pepcid IV and Reglan IV was given. Patient was started on Bentyl 20 mg 4 times a day as needed for abdominal cramps/spasms. Gastroenterology service was consulted. Patient has been afebrile. Anticipate discharge in the next 24 hours with clinical improvement. Subjective 05/12/2019 Patient presents with abdominal pain no vomiting, her vomiting is stopped since yesterday, it was without blood, however patient still nausea, she still have low appetite, she ate only have been on and half cup of juice only since morning. She still complaining of from abdominal pain. Umbilical and RLQ pain and tenderness, however is better compared when she came in it was about 9/10 and currently 3.5/10 as per patient. she did not have bowel movement since yesterday, she had loose bowel movement in the morning yesterday but not anymore Patient states that she is aware of her problem of large uterus and fibroids and she has very bad menstrual cycle that she follow up with staff anesthetist Dr. Jacome last year and she status post ablation however after 1 year her menstrual problem starting to come back again, patient was instructed to follow up with her staff anesthetist as an outpatient and she agrees. Vitals are stable. he is back to normal at 8.9K, electrolytes are normal. We'll consult GI team and developed abdominal x-ray since patient is still symptomatic 05/13/2019 Patient told me this morning she is able to tolerate soft diet although she still have some difficulty, she still having nausea and asking for nausea medication. Her abdominal pain is slightly better its around the umbilicus and more towards the right side, there through the abdominal x-ray showing still ileus andshe is a stable. CBC and BMP from this morning are stable, TSH is normal at 1.5. Patient has been evaluated by equestrian trainer and cleared her for discharge, and surgery saw her today and known plan for surgical intervention. We will keep monitoring the patient this afternoon and if she keeps improving she might be discharged Objective - Vital Signs Vital signs: Vital Signs Temp 98.3 F 05/13/19 07:05 Pulse 58 L 05/13/19 07:05 Resp 16 05/13/19 07:05 BP 127/78 05/13/19 07:05 Pulse Ox 97 05/13/19 07:05 Intake & Output 05/12/19 05/13/19 05/13/19 18:59 06:59 18:59 Intake Total 200 Balance 200 Intake: Other 200 Other: Voiding Method Toilet Toilet # Voids 1 1 - Exam GENERAL: The patient is alert and oriented x3, not in any acute distress. Well developed, well nourished. HEENT: Pupils are round and equally reacting to light. EOMI. No scleral icterus. No conjunctival pallor. Normocephalic, atraumatic. No pharyngeal erythema. No thyromegaly. CARDIOVASCULAR: S1 and S2 present. No murmurs, rubs, or gallops. PULMONARY: Chest is clear to auscultation, no wheezing or crackles. -ABDOMEN: Soft, mild debbie-Umbilical and RLQ pain and tenderness, no guarding or rebound tenderness nondistended, normoactive bowel sounds. No palpable organomegaly. MUSCULOSKELETAL: No joint swelling or deformity. EXTREMITIES: No cyanosis, clubbing, or pedal edema. NEUROLOGICAL: Gross neurological examination did not reveal any focal deficits. SKIN: No rashes. no petechiae. - Labs CBC & Chem 7: 05/13/19 05:55 05/13/19 05:55 Labs: Abnormal Lab Results - Last 24 Hours (Table) 05/13/19 Range/Units 05:55 BUN 4 L (7-17) mg/dL Calcium 8.3 L (8.4-10.2) mg/dL Assessment and Plan Assessment: Intractable nausea vomiting and diarrhea with abdominal pain. Likely acute gastroenteritis Small bowel ileus Anxiety/depression ADD/ADHD VS history of smoking Plan: This is a pleasant 43 a soft female who presents because of abdominal pain and vomiting suspicious for gastroenteritis and abdominal ileus. She still have symptoms are going to do abdominal x-ray and ask for GI consult. Continue with Bentyl and hydration. Advance diet to liquid diet Labs and medication were reviewed.. Continue same treatment. Continue with symptomatic treatment. Resume home medication. Monitor lytes and vitals. DVT and GI prophylaxis. Further recommendations of the clinical course of the patient DVT prophylaxis: Subcutaneous Lovenox GI Prophylaxis: Pepcid Prognosis is guarded
[2019-05-13] MEDS: ENOXAPARIN 40 MG/0.4 ML SYRINGE SQ SCH (09:49)
[2019-05-13] MEDS: HYDROcodone/APAP 5-325MG 1 EACH TAB PO PRN ×2 (09:49→15:07)
[2019-05-13] MEDS: FAMOTIDINE 20 MG/2 ML VIAL IV SCH (09:49)
[2019-05-13] MEDS: DICYCLOMINE 20 MG TAB PO SCH ×2 (09:49→15:06)
[2019-05-13] MEDS: busPIRone HCl 5 MG TAB PO PRN (15:06)
[2019-05-13 15:50] VITALS: BP 159/92; PULSE 53; RESP 18; TEMP 98.8
--- NOTE | 2019-05-13 17:27 | PN ---
PROGRESS NOTE DATE OF DICTATION: 05/13/2019 This patient is a 43-year-old pleasant white female admitted to the hospital with acute onset of nausea, vomiting, diarrhea for the last 5 days' duration. She was admitted to the hospital with dehydration and severe cramping lower abdominal pain. Her symptoms are gradually improving. This morning she had some cramping followed by one loose bowel movement, but she did not have any bowel movements for the last 2 days. She still has nausea requiring antiemetics, occasionally requiring pain medications for lower abdominal pain. Overall she is feeling better on a regular diet, tolerating well. Wants to go home. PHYSICAL EXAMINATION: Appears comfortable. No apparent distress. Vital signs are stable. Blood pressure is 159/82, pulse rate 53, temperature 98.8. HEENT examination unremarkable. Conjunctivae pink. Sclerae anicteric. Oral cavity no lesions. NECK: No JVD or lymph node enlargement. CHEST: Clear to auscultation. HEART: Regular rate and rhythm. ABDOMEN: Soft. Bowel sounds are positive. No organomegaly. EXTREMITIES: No pedal edema. SKIN: No rashes. NEUROLOGIC: Alert and oriented x3. No focal deficits. LABS: Labs from today show WBC 7.1, hemoglobin 12.4, platelets normal. Basic metabolic panel is within normal limits. C difficile is negative. IMPRESSION: Acute viral gastroenteritis which is gradually improving. Patient with nausea, vomiting, diarrhea for the last 5 days, but symptoms are gradually improving. On a regular diet, tolerating well. RECOMMENDATIONS: 1. Imodium as needed. 2. Pain medications as needed. 3. Advance to a low-fiber diet. 4. Patient can be discharged home today with outpatient followup as needed if she has persistent symptoms. Thank you for this consultation. MMODL / IJN: [id number] /
[2019-05-13] MEDS ORDERED: FAMOTIDINE 20 MG TAB PO SCH (21:00)
== END 2019-05-13 16:30 | disposition home or self-care (01) | DRG 392 ==
LOC: EC 11:10 → 1SOBS 15:28 → OBSVTOIN 05-11 12:57
PROVIDERS: ADMIT Hospitalist; ATTEND Hospitalist
DX: A08.4 Viral intestinal infection, unspecified (principal); K56.7 Ileus, unspecified; E86.0 Dehydration; F32.9 Major depressive disorder, single episode, unspecified; F41.9 Anxiety disorder, unspecified; F90.9 Attention-deficit hyperactivity disorder, unspecified type; I49.1 Atrial premature depolarization; D25.9 Leiomyoma of uterus, unspecified; Z87.891 Personal history of nicotine dependence; Z79.899 Other long term (current) drug therapy; Z88.6 Allergy status to analgesic agent; Z88.5 Allergy status to narcotic agent; Z90.49 Acquired absence of other specified parts of digestive tract; Z82.49 Family history of ischemic heart disease and other diseases of the circulatory system; Z80.3 Family history of malignant neoplasm of breast; Z83.3 Family history of diabetes mellitus
CPT/HCPCS: 36415; 74018; 74177; 80048; 80053; 81001; 82150; 83630; 83690; 83735; 84443; 84484; 85025; 87045; 87046; 87324; 93005; 96361; 96374; 96375; 96376; 99285

== ENCOUNTER → 2019-09-24 | Outpatient (CLI) | payer BC ==
--- NOTE | 2019-09-24 13:24 | MM ---
Reason for exam: clinical finding. History: Took hormonal contraceptives for 7 years beginning at age 20. Physical Findings: Nurse Summary: 2cm nodule in the right breast at 11 o'clock, 2cm nodule in the leftbreast at 1 o'clock (nurse dw). MG 3D Diag Mammo W/Cad ABENA Bilateral CC and MLO view(s) were taken. The breast tissue is heterogeneously dense. This may lower the sensitivity of mammography. There are scattered calcifications. 8mm nodular density upper outer right breast 9.4cm from nipple. These results were verbally communicated with the patient and result sheet given to the patient on 09/24/19. ASSESSMENT: Incomplete: need additional imaging evaluation, BI-RAD 0 RECOMMENDATION: Ultrasound of both breasts. (palpable upper outer quadrant) Manage patient on a clinical basis.
--- NOTE | 2019-09-24 13:25 | USB ---
Reason for exam: additional evaluation requested from abnormal screening. History: Took hormonal contraceptives for 7 years beginning at age 20. US Breast Workup Limited ABENA Right limited breast ultrasound including focal area of concern, retroareolar and axilla demonstrates a 11 x 5 x 8mm oval, cystic lesion at 10 o'clock. Left limited breast ultrasound including focal area of concern, retroareolar and axilla demonstrates a 13 x 10 x 12mm oval, cystic lesion at 2 o'clock BB and a 10 x 5 x 8mm oval, cystic lesion at 3 o'clock. These results were verbally communicated with the patient and result sheet given to the patient on 09/24/19. ASSESSMENT: Benign, BI-RAD 2 RECOMMENDATION: Routine screening mammogram of both breasts in 1 year. Manage patient on a clinical basis.
== END | disposition home or self-care (01) ==
LOC: RADMAMWWP 11:02
PROVIDERS: ATTEND Family Medicine
DX: N63.20 Unspecified lump in the left breast, unspecified quadrant (principal)
CPT/HCPCS: 77062; 77066